=== PATIENT | male | born 1950 | race Caucasian/White ===

== ENCOUNTER 2016-05-31 06:51 | Outpatient (CLI) | payer MEDICARE, MEDICAID ==
[~2016-05-31] VITALS: Ht 177.8 cm; Wt 77.3 kg
[2016-05-31] VITALS (10 sets, daily range): BP systolic 109–171; BP diastolic 69–93; Ht 177.8 cm; Wt 77.3 kg
--- NOTE | ~2016-05-31 | HEMODYNAMI ---
PATIENT:AMRIT GABRIEL MEDICAL RECORD: [id number] : 46 LOCATION:[facility] [id number] ADMISSION DATE: 05/31/16 Generatedon:06/01/201610:23 Patient name: AMRIT GABRIEL Patient #: [id number] : 1950 Date of study: 06/01/2016 Page: Of Hemodynamic Procedure Report Patient Data Patient Demographics Procedure consent was obtained First Name: AMRIT Gender: Male Last Name: HARVEY : 1950 Middle Initial: F Age: 66 year(s) Patient #: [id number] Race: SSN: [id number] Additional ID: [id number] Contact details Address: [address] [place] [address] State: [place] City: [facility] [place] [place] Zip code: [address] Past Medical History Allergies: No known allergies Admission Admission Data Admission Date: 05/31/2016 Admission Time: 6:51 Arrival Date: 05/31/2016 Arrival Time: 9:00 Admit Source: Other Insurance Payor: Medicare Room #: D.2116 Height (in.): 70 BSA: 2.09 (m2) Height (cm.): 177.8 BMI: 28.7 (kg/m2) Weight (lbs.): 200 Weight (kg.): 90.72 Lab Results Lab Result Date: 05/31/2016 Lab Result Time: 0:00 Biochemistry Name Units Result Min Max BUN mg/dl 24 --(----)-* 7 18 Creatinine mg/dl 1.3 --(---*)-- 0.6 1.3 CBC Name Units Result Min Max Hemoglobin g/dl 14.7 --(-*--)-- 13.5 17.5 Procedure Procedure Types Cath Procedure PCI Procedure Coronary Stent Initial Miscellaneous Procedures Moderate Sedation up to 45 minutes Procedure Description Procedure Date Procedure Date: 06/01/2016 Procedure Start Time: 9:36 Procedure End Time: 10:14 Procedure Staff Name Function Merrick Mccoy MD Performing Physician Sonny Arroyo RT Scrub Danuta Kimble RN Nurse Collin Armstrong RT Ambulance Assistant Alfredito Arizmendi RT Monitor Zakiya Abraham RT Monitor Procedure Data Cath Procedure Fluoroscopy Diagnostic fluoroscopy Total fluoroscopy Time: time: 17.5 min 17.5 min Diagnostic fluoroscopy Total fluoroscopy dose: dose: 1236 mGy 1236 mGy Contrast Material Contrast Material Type Amount (ml) Isovue 300 126 Entry Location Entry Primary Successful Side Size Upsize Upsize Entry Closure Succes sful Closure Location (Fr) 1 (Fr) 2 (Fr) Remarks Device Remarks Femoral Left 7 Fr Exoseal artery Short Procedure Complications No complications Procedure Medications Medication Administration Route Dosage Oxygen NC 2 l/min Heparin Flush Bag added to field 2 bags (1000units/500ml NS) Lidocaine 2% added to field 20 Plavix P.O. 75 mg 0.9% NaCl I.V. 100 ml/hr Fentanyl I.V. 50 mcg Heparin Bolus 4000 units Fentanyl I.V. 50 mcg Heparin Bolus 3000 units Hemodynamics Rest BSA: 2.09 (m2) HGB: 14.7 (g/dl) O2 Consumption: Estimated: 244.57 (ml/min) O2 Co nsumption indexed: Estimated:117.02 (ml/min/m) Heart Rate: 72 (bpm) Snapshots Pre Cath Intra NCS Post Cath Vital Signs Time Heart Resp SPO2 NIBP (mmHg) Rhythm Pain Sedation Rate (ipm) (%) Status Level (bpm) 9:11:26 76 16 97 182/88(146) NSR 0 (11) 10(A) , No pain 9:15:57 69 15 99 173/96(143) NSR 0 (11) 10(A) , No pain 9:20:25 74 16 98 185/104(150) NSR 0 (11) 10(A) , No pain 9:24:54 75 16 98 182/100(151) NSR 0 (11) 10(A) , No pain 9:29:24 74 16 98 195/106(147) NSR 0 (11) 10(A) , No pain 9:33:52 75 16 96 186/101(159) NSR 0 (11) 10(A) , No pain 9:38:14 76 16 97 171/93(139) NSR 0 (11) 10(A) , No pain 9:42:45 73 16 95 187/92(150) NSR 0 (11) 10(A) , No pain 9:47:15 73 16 95 179/94(143) NSR 0 (11) 10(A) , No pain 9:51:39 73 16 96 171/96(143) NSR 0 (11) 10(A) , No pain 9:56:10 72 15 96 176/84(131) NSR 0 (11) 10(A) , No pain 10:00:38 71 16 95 175/90(146) NSR 0 (11) 10(A) , No pain 10:05:02 72 16 96 169/100(140) NSR 0 (11) 10(A) , No pain 10:09:27 71 16 96 177/95(144) NSR 0 (11) 10(A) , No pain 10:13:53 75 16 95 166/90(131) NSR 0 (11) 10(A) , No pain Medications Time Medication Route Dose Verified Delivered Reason Notes E ffectiveness by by 9:06:00 Plavix P.O. 75 mg Merrick Danuta for Darius Kimble RN antiplatelet therapy 9:13:21 Oxygen NC 2 Merrick Danuta Per l/min Darisu Kimble RN physician 9:13:31 Heparin Flush added 2 Merrick Merrick used for Bag to bags Darius Mccoy MD procedure (1000units/500ml field NS) 9:13:40 Lidocaine 2% added 20ml Merrickmilady Sin used for to vial Darius Mccoy MD procedure field 9:16:12 0.9% NaCl I.V. 100 Merrick Danuta Per ml/hr Darius Kimble RN physician 9:35:38 Fentanyl I.V. 50 Merrick Danuta for sedation mcg Darius Kimble RN 9:37:27 Heparin Bolus 4000 Merrick Danuta Per dose units Darius Kimble RN physician verified with dr mccoy 9:37:38 Fentanyl I.V. 50 Merrick Danuta for sedation mcg Darius Kimble RN 9:57:48 Heparin Bolus 3000 Merrick Danuta Per dose units Darius Kimble RN physician verified with dr mccoy Procedure Log Time Note 8:30:27 Collin Armstrong RT(R) sent for patient. Start room use. 8:55:51 Informed consent obtained and on chart 8:56:25 ACC Patient presents with Unstable Angina CCS Anginal Class 3--Marked limitation of physical activity, angina occurs with ordinary activity.. 8:56:33 Time tracking: Regular hours 8:56:36 Plan of Care:Hemodynamics will remain stable., Cardiac rhythm will remain stable., Comfort level will be maintained., Respiratory function will remain adequate., Patient/ family verbilizes understanding of procedure., Procedure tolerated without complication., Recovers from procedure without complications.. 9:02:42 H&P Date Dictated: 05/31/2016 Within 30 days and on chart.. 9:05:56 Patient received from Med II to CCL 2 Alert and oriented. Tansferred to table in Supine position. 9:05:57 Warm blankets applied, and sandor hugger turned on for patient comfort. 9:05:58 Correct patient and procedure confirmed by team. 9:05:59 ECG and BP/O2 sat monitors applied to patient. 9:06:00 Plavix 75 mg P.O. was given by Danuta Kimble RN; for antiplatelet therapy; 9:06:04 Pre-procedure instructions explained to patient. 9:06:05 Pre-op teaching completed and patient verbalized understanding. 9:06:07 Family in patients room. 9:06:08 Patient NPO since Midnight. 9:06:14 Patient allergic to No known allergies 9:06:17 Is the patient allergic to Iodine/contrast media? No. 9:07:46 IV Extension Set opened to sterile field. 9:10:05 Vital chart was started 9:13:21 Oxygen 2 l/min NC was given by Danuta Kimble RN; Per physician; 9:13:31 Heparin Flush Bag (1000units/500ml NS) 2 bags added to field was given by Merrick Mccoy MD; used for procedure; 9:13:34 Diagnostic Cath Status : Elective 9:13:39 Baseline sample Acquired. 9:13:40 Lidocaine 2% 20ml vial added to field was given by Merrick Mccoy MD; used for procedure; 9:13:45 Rhythm: sinus rhythm 9:13:47 Full Disclosure recording started 9:13:58 Is patient on blood thinner?Yes 9:14:01 ACC The patient was administered the following blood thiners within the last 24 hours: ACCPlavix 9:15:09 Patient diabetic? Yes. 9:15:10 If diabetic: On Metformin? Yes 9:15:14 If on Metformin: Last Dose? 05/30/2016 9:15:46 Previous problem with sedation/anesthesia? Yes DOES NOT DO WELL WITH VERSED 9:15:49 Snore? Yes 9:15:53 Sleep apnea? No 9:15:55 Deviated septum? No 9:16:06 Dentures? Yes TIGHT 9:16:12 0.9% NaCl 100 ml/hr I.V. was given by Danuta Kimble RN; Per physician; 9:16:16 PT DID NOT HAVE ANY SALINE RUNNING OR ATTACHED TO THE IV ON ARRIVAL/UNABLE TO EDIT ALFREDITO NICHOLESPENCER 9:16:16 IV patent on arrival in left forearm with 0.9% NaCl at [facility]. 9:16:28 Lab results completed and on chart. 9:16:33 Left groin area was prepped with chlora-prep and draped in sterile fashion 9:16:34 Alarms reviewed by R. N. 9:16:35 Sharps counted by scrub and verified by R.N. 9:16:36 Physician paged 9:16:42 Physician arrived 9:22:46 Use device set Femoral PCI 9:23:03 Zero performed for pressure channel P1 9:23:14 Zero performed for pressure channel P1 9:23:30 Zero performed for pressure channel P1 9:23:35 Zero performed for pressure channel P1 9:23:46 Zero performed for pressure channel P1 9:23:52 Zero performed for pressure channel P1 9:24:11 Zero performed for pressure channel P1 9:24:27 Zero performed for pressure channel P1 9:34:24 --------ALL STOP TIME OUT------ 9:34:25 Final Timeout: patient, procedure, and site verified with staff and physician. All members of the team are in agreement. 9:34:26 Left groin site verified by team. 9:34:31 Physical assessment completed. ASA score P 2 - A patient with mild systemic disease as per Merrick Mccoy MD. 9:34:37 Sedation plan: IV Moderate Sedation Fentanyl 9:35:38 Fentanyl 50 mcg I.V. was given by Danuta Kimble RN; for sedation; 9:36:20 Procedure started. 9:36:35 Local anesthetic to left femerol artery with Lidocaine 2% by Merrick Mccoy MD.INITIAL ACCESS ONLY 9:36:53 A 7 Fr Short sheath was inserted into the Left Femoral artery 9:37:20 ACC PCI Site: mRCA has 95% stenosis. 9:37:23 ACC Pre-intervention LUCINA Flow is 2. 9:37:27 Heparin Bolus 4000 units was given by Danuta Kimble RN; Per physician; dose verified with dr mccoy 9:37:32 7 Fr HS11 SH guide catheter was inserted over the wire 9:37:38 Fentanyl 50 mcg I.V. was given by Danuta Kimble RN; for sedation; 9:38:00 CPTES wire advanced. 9:40:13 Inflation number: 1 A [place] Sci [place] 3.0 X 15 balloon was prepped and advanced across the Mid RCA, then inflated to 15 KRISTA for 0:11 (min:sec). 9:40:38 Inflation number: 1 The [place] Sci [place] 3.0 X 15 balloon was reinflated across the Dist RCA, to 11 KRISTA for 0:10 (min:sec). 9:41:00 Inflation number: 2 The [place] Sci [place] 3.0 X 15 balloon was reinflated across the Mid RCA, to 11 KRISTA for 0:09 (min:sec). 9:42:56 Balloon removed over the wire. 9:44:21 The Promus Premier OTW 3.0 x 16 stent was advanced then removed because of failure to cross lesion 9:45:25 Inflation number: 3 A [place] Sci [place] 3.5 X 15 balloon was prepped and advanced across the Mid RCA, then inflated to 17 KRISTA for 0:22 (min:sec). 9:45:43 Balloon removed over the wire. 9:47:11 WHISPER wire advanced. 9:47:24 JOSEPHINE WIRE 9:48:21 Wire removed. 9:48:46 Inflation Number: 2 A Promus Premier OTW 3.0 x 16 stent was prepped and advanced across the Dist RCA. The stent was deployed at 13 KRISTA for 0:11 (min:sec). 9:49:29 Stent catheter was removed intact over wire. 9:49:35 WHISPER wire advanced. 9:49:43 JOSEPHINE WIRE 9:55:37 Wire removed. 9:55:46 CPTES wire advanced. 9:56:30 The Promus Premier OTW 3.0 x 16 stent was advanced then removed because of failure to cross lesion 9:57:48 Heparin Bolus 3000 units was given by Danuta Kimble RN; Per physician; dose verified with dr mccoy 9:58:50 Inflation number: 4 The [place] Sci [place] 3.5 X 15 balloon was reinflated across the Mid RCA, to 15 KRISTA for 0:17 (min:sec). 9:58:54 Balloon removed over the wire. 10:01:56 The Promus Premier OTW 3.0 x 16 stent was advanced then removed because of failure to cross lesion 10:04:06 Wire removed. 10:04:23 Inflation Number: 5 A [employer] Integrity 3.0 X 15 stent was prepped and advanced across the Mid RCA. The stent was deployed at 17 KRISTA for 0:14 (min:sec). 10:04:48 Stent catheter was removed intact over wire. 10:07:42 Inflation Number: 1 A Promus Premier OTW 3.0 x 16 stent was prepped and advanced across the Prox RCA. The stent was deployed at 15 KRISTA for 0:08 (min:sec). 10:07:55 Inflation number: 2 The stent balloon was then re-inflated across the Prox RCA to 21 KRISTA for 0:11 (min:sec). 10:08:20 Stent catheter was removed intact over wire. 10:09:56 Inflation number: 6 The [place] Sci [place] 3.5 X 15 balloon was reinflated across the Mid RCA, to 19 KRISTA for 0:18 (min:sec). 10:10:39 Stent catheter was removed intact over wire. 10:10:40 Wire removed. 10:10:40 Guide catheter removed. 10:11:03 Contrast amount:Isovue 300 126ml. 10:11:10 Sheath removed intact; hemostasis achieved with Exoseal to the Left Femoral artery. 10:11:12 Procedure ended.(Physican Out) 10:11:28 Fluoroscopy time 17.50 minutes. :11:33 Flurop Dose total: 1236 10::33 Fluoroscopy dose: 1236 mGy 10:11:34 Sharps counted by scrub and verified by R.N. 10:11:44 Acist Syringe opened to sterile field. 10:11:44 Acist Hand Control opened to sterile field. 10:11:45 Bag Decanter opened to sterile field. 10:11:45 Cardinal Cath Pack opened to sterile field. 10:11:50 St Yon 260cm J .035 wire opened to sterile field. 10:11:51 Merit BasixCompak Inflation Kit opened to sterile field. 10:11:51 Acist Manifold opened to sterile field. 10:11:52 Tegaderm 4 x 4 opened to sterile field. 10:11:53 Terumo 7Fr [place] Sheath opened to sterile field. 10:11:54 Tsang Whisper J 300cm 0.014 guide wire opened to sterile field. 10:11:54 Medtronic Launcher 7Fr HS II SH guide catheter opened to sterile field. 10:11:55 [place] Sci Choice PT Extra Support J 300cm .014 gu opened to sterile field. 10:11:56 [place] Sci Choice PT Extra Support J 300cm .014 gu opened to sterile field. 10:11:57 Cordis 7Fr Exoseal opened to sterile field. 10:12:49 Procedure type changed to Cath procedure, PCI procedure, Coronary Stent Initial, Miscellaneous Procedures, Moderate Sedation up to 45 minutes 10:12:53 Insertion/operative site no bleeding no hematoma. 10:12:56 Post-op/insertion site Left Femoral artery dressed using a 4 x 4 and Tegaderm. 10:12:59 Post left femerol artery:stable 10:13:01 Post Procedure Pulses reassessed and unchanged 10:13:04 Post procedure: left dorsailis pedis pulse 1+ Palpable, but thready & weak; easily obliterated. 10:13:06 Post procedure rhythm: sinus rhythm 10:13:08 Post procedure instruction explained to patient.Patient verbalizes understanding. 10:14:05 Procedure and supply charges have been captured, reviewed, submitted and are correct. 10:14:09 Procedure Complication : No complications 10:14:11 Vital chart was stopped 10:14:11 See physician's report for complete and final results. 10:14:16 Report given to PCU. 10:14:21 Patient transfered to PCU with Bed. 10:14:22 Procedure ended. 10:14:22 Full Disclosure recording stopped 10:14:30 ACC-PCI Only Patient was given prescriptions, or instructed by Merrick Mccoy MD to start/continue the following medications upon discharge: Plavix 10:14:51 End room use (Document Last) Intervention Summary Intervention Notes Time ActionType Lesion and Equipment Action# Pressure Duration Attributes Used 9:40:13 Inflate Mid RCA [place] 1 15 00:11 balloon Sci [place] 3.0 X 15 balloon 9:40:38 Reinflate Dist RCA [place] 1 11 00:10 balloon Sci [place] 3.0 X 15 balloon 9:41:00 Reinflate Mid RCA [place] 2 11 00:09 balloon Sci [place] 3.0 X 15 balloon 9:44:21 Discard Promus Stent Premier OTW 3.0 x 16 stent 9:45:25 Inflate Mid RCA [place] 3 17 00:22 balloon Sci [place] 3.5 X 15 balloon 9:48:46 Place stent Dist RCA Promus 2 13 00:11 Premier OTW 3.0 x 16 stent 9:56:30 Discard Promus Stent Premier OTW 3.0 x 16 stent 9:58:50 Reinflate Mid RCA [place] 4 15 00:17 balloon Sci [place] 3.5 X 15 balloon 10:01:56 Discard Promus Stent Premier OTW 3.0 x 16 stent 10:04:23 Place stent Mid RCA Medtronic 5 17 00:14 Integrity 3.0 X 15 stent 10:07:42 Place stent Prox RCA Promus 1 15 00:08 Premier OTW 3.0 x 16 stent 10:07:55 Reinflate Prox RCA Promus 2 21 00:11 stent Premier balloon OTW 3.0 x 16 stent 10:09:56 Reinflate Mid RCA [place] 6 19 00:18 balloon Sci [place] 3.5 X 15 balloon Device Usage Item Name Manufacture Quantity Catalog Number Hospital Part Current [facility] Lot# / Charge Number Stock Stock Serial# Code IV [place] [address] 97224-59 [id number] 10064 488674 5 Extension Set [employer] Sci [place] 1 [id number] 780995 327345 665637 1 [id number] [place] Scientific 3.0 X 15 balloon Promus [place] 2 [id number] 458458 567655 5 [id number] Premier OTW Scientific [id number] 3.0 x 16 stent [place] Sci [place] 1 [id number] 153518 647308 848037 1 [id number] Huddle 3.5 X 15 balloon Medtronic Medtronic 1 [id number] 888991 150384 283403 6 [id number] Integrity 3.0 X 15 stent Acist Acist 1 00560 539873 239787 117845 20 Syringe Medical Systems Inc Acist Hand Acist 1 03504 757769 334932 772081 5 Control Medical Systems Inc Bag Microtek 1 2002S 834246 42977 431993 5 Decanter Medical Inc. Cardinal Cardinal 1 [id number] 295224 34192 297276 5 Cath Pack [facility] St Yon St Yon 1 [id number] 096284 713192 782467 30 260cm J .035 wire Merit Merit 1 [id number] 985205 638700 483451 15 BasixCompak Medical Inflation Kit Acist Acist 1 10336 590882 318039 705231 5 StyleQ Medical Systems Inc Tegaderm 4 3M 1 1626W 239542 203238 846991 5 x 4 Terumo 7Fr Terumo 1 DSM687 613405 553611 847181 5 [place] Sheath Tsang Tsang 1 [id number] 838555 094286 930823 5 Whisper J Vascular 300cm 0.014 guide wire Medtronic Medtronic 1 [id number] 815766 422856 997328 0 Launcher 7Fr HS II SH guide catheter [employer] Sci [place] 2 [id number] 389737 241418 078641 5 [id number] Choice PT Scientific [id number] Extra Support J 300cm .014 gu Cordis 7Fr Cardinal 1 EX700 929099 196803 047648 5 [facility] Signature Audit [place] Stage Time Signature Unsigned Intra-Procedure 06/01/2016 Alfredito Arizmendi 10:23:45 AM RT(R) Signatures Monitor : Alfredito Arizmendi RT Signature : Date : Time : Monitor : Zakiya Abraham Signature : RT Date : Time : [address] [place] [address]
--- NOTE | ~2016-05-31 | HEMODYNAMI ---
PATIENT:AMRIT GABRIEL MEDICAL RECORD: [id number] : 46 LOCATION:[facility] ADMISSION DATE: 05/31/16 Generatedon:05/31/201610:12 Patient name: AMRIT GABRIEL Patient #: [id number] : 1950 Date of study: 05/31/2016 Page: Of Hemodynamic Procedure Report Patient Data Patient Demographics Procedure consent was obtained First Name: AMRIT Gender: Male Last Name: HARVEY : 1950 Middle Initial: F Age: 66 year(s) Patient #: [id number] Race: SSN: [id number] Additional ID: [id number] Contact details Address: [address] [place] [address] State: [place]: [facility] [place] Zip code: [address] Past Medical History Allergies: No known allergies Admission Admission Data Admission Date: 05/31/2016 Admission Time: 6:51 Arrival Date: 05/31/2016 Arrival Time: 9:00 Admit Source: Other Insurance Payor: Medicare Height (in.): 70 BSA: 2.09 (m2) Height (cm.): 177.8 BMI: 28.7 (kg/m2) Weight (lbs.): 200 Weight (kg.): 90.72 Lab Results Lab Result Date: 05/31/2016 Lab Result Time: 0:00 Biochemistry Name Units Result Min Max BUN mg/dl 24 --(----)-* 7 18 Creatinine mg/dl 1.3 --(---*)-- 0.6 1.3 CBC Name Units Result Min Max Hemoglobin g/dl 14.7 --(-*--)-- 13.5 17.5 Procedure Procedure Types Cath Procedure Diagnostic Procedure [facility] w/Coronaries PCI Procedure Coronary Stent Initial Procedure Description Procedure Date Procedure Date: 05/31/2016 Procedure Start Time: 9:45 Procedure End Time: 10:07 Procedure Staff Name Function Merrick Mccoy MD Performing Physician Zakiya Abraham RT Scrub Danuta Kimble RN Nurse Jessica White RT Monitor Collin Armstrong RT Fpga Engineer Procedure Data Cath Procedure Fluoroscopy Diagnostic fluoroscopy Total fluoroscopy Time: 5.5 time: 5.5 min min Diagnostic fluoroscopy Total fluoroscopy dose: dose: 386.56 mGy 386.56 mGy Contrast Material Contrast Material Type Amount (ml) Isovue 370 84 Entry Location Entry Primary Successful Side Size Upsize Upsize Entry Closure Succes sful Closure Location (Fr) 1 (Fr) 2 (Fr) Remarks Device Remarks Femoral Right 5 Fr 6 Fr Vascade artery Short Closure System Estimated blood loss: 5 ml Diagnostic catheters Device Type Used For End Catheter Placement Cordis 5Fr Pigtail LV Angiography Catheter (MP) Cordis 5Fr JL 4.0 Left Coronary Catheter (MP) Angiography Cordis 5Fr 3DRC Catheter Right Coronary (MP) Angiography Procedure Complications No complications Procedure Medications Medication Administration Route Dosage Oxygen NC 2 l/min Heparin Flush Bag added to field 2 bags (1000units/500ml NS) Lidocaine 2% added to field 20 Versed I.V. 1 mg Fentanyl I.V. 50 mcg Versed I.V. 1 mg Fentanyl I.V. 50 mcg Versed I.V. 1 mg Fentanyl I.V. 50 mcg Versed I.V. 1 mg Fentanyl I.V. 50 mcg Versed I.V. 1 mg Fentanyl I.V. 50 mcg Heparin Bolus I.V. 4000 units Hemodynamics Rest BSA: 2.09 (m2) HGB: 14.7 (g/dl) O2 Consumption: Estimated: 247.7 (ml/min) O2 Con sumption indexed: Estimated:118.52 (ml/min/m) Heart Rate: 76 (bpm) Pressure Samples Time Site Value (mmHg) Purpose Heart Use Rate(bpm) 9:47 LV 82/39,48 Snapshot 78 Snapshots Pre Cath Intra NCS Post Cath Vital Signs Time Heart Resp SPO2 NIBP (mmHg) Rhythm Pain Sedation Rate (ipm) (%) Status Level (bpm) 9:21:21 71 17 97 168/102(150) NSR 0 (11) 10(A) , No pain 9:25:39 76 15 98 148/96(123) NSR 0 (11) 10(A) , No pain 9:29:51 74 16 98 145/90(128) NSR 0 (11) 10(A) , No pain 9:34:09 73 16 95 144/89(121) NSR 0 (11) 10(A) , No pain 9:38:23 76 16 95 119/81(106) NSR 0 (11) 10(A) , No pain 9:42:37 67 16 96 127/79(98) NSR 0 (11) 10(A) , No pain 9:46:43 75 16 96 115/81(93) NSR 0 (11) 10(A) , No pain 9:50:59 75 19 96 110/59(78) NSR 0 (11) 10(A) , No pain 9:55:09 75 16 96 124/78(100) NSR 0 (11) 10(A) , No pain 9:59:25 80 16 97 107/78(96) NSR 0 (11) 10(A) , No pain 10:03:32 85 18 94 112/78(100) NSR 0 (11) 10(A) , No pain 10:07:42 81 16 96 120/79(96) NSR 0 (11) 10(A) , No pain Medications Time Medication Route Dose Verified Delivered Reason Notes Effectiveness by by 9:20:28 Oxygen NC 2 Merrick Danuta Per physician l/min Darius Kimble RN 9:20:36 Heparin Flush added 2 Merrick Merrick used for Bag to bags Darius Mccoy MD procedure (1000units/500ml field NS) 9:20:44 Lidocaine 2% added 20ml Merrickmilady Franklinrey used for to vial Darius Mccoy MD procedure field 9:31:00 Versed I.V. 1 mg Merrick Danuta for sedation Darius Kimble RN 9:31:07 Fentanyl I.V. 50 Merrick Danuta for sedation mcg Darius Kimble RN 9:33:17 Versed I.V. 1 mg Merrick Danuta for sedation Darius Kimble RN 9:33:20 Fentanyl I.V. 50 Merrick Danuta for sedation mcg Darius Kimble RN 9:39:35 Versed I.V. 1 mg Merrick Danuta for sedation Darius Kimble RN 9:39:37 Fentanyl I.V. 50 Merrick Danuta for sedation mcg Darius Kimble RN 9:43:59 Versed I.V. 1 mg Merrick Danuta for sedation Darius Kimble RN 9:44:02 Fentanyl I.V. 50 Merrick Danuta for sedation mcg Darius Kimble RN 9:46:34 Versed I.V. 1 mg Merrick Danuta for sedation Darius Kimble RN 9:46:37 Fentanyl I.V. 50 Merrick Danuta for sedation mcg Darius Kimble RN 9:56:00 Heparin Bolus I.V. 4000 Merrick Danuta for units Darius Kimble RN anticoagulation Procedure Log Time Note 9:00:32 Clolin Armstrong RT(R) sent for patient. Start room use. 9:07:11 Informed consent obtained and on chart 9:08:23 Admit Source: Other 9:08:28 Patient Height : 177.8 inches 9:08:35 Patient Weight : 90.72 lbs 9:08:57 Arrival Date: 05/31/2016 9:00:00 AM 9:09:13 Insurance Payor : Medicare 9:11:48 Lab Result : Hemoglobin 14.7 g/dl 9:11:48 Lab Result : BUN 24 mg/dl 9:11:48 Lab Result : Creatinine 1.3 mg/dl 9:12:13 Diagnostic Cath Status : Elective 9:12:38 Time tracking: Regular hours 9:12:43 Plan of Care:Hemodynamics will remain stable., Cardiac rhythm will remain stable., Comfort level will be maintained., Respiratory function will remain adequate., Patient/ family verbilizes understanding of procedure., Procedure tolerated without complication., Recovers from procedure without complications.. 9:12:59 Patient received from Outpatients to [facility] 3 Alert and oriented. Tansferred to table in Supine position. 9:13:00 Warm blankets applied, and sandor hugger turned on for patient comfort. 9:13:01 Correct patient and procedure confirmed by team. 9:13:01 ECG and BP/O2 sat monitors applied to patient. 9:17:00 Vital chart was started 9:17:03 Full Disclosure recording started 9:17:09 Rhythm: sinus rhythm 9:17:31 H&P Date Dictated: 05/05/2016 Within 30 days and on chart., H&P Addendum completed by physician on day of procedure. (MUST COMPLETE FOR ALL OUTPATIENTS). 9:17:33 Pre-procedure instructions explained to patient. 9:17:33 Pre-op teaching completed and patient verbalized understanding. 9:17:35 Family in waiting room. 9:17:37 Patient NPO since Midnight. 9:17:43 Patient allergic to No known allergies 9:17:45 Is the patient allergic to Iodine/contrast media? No. 9:18:33 Is patient on blood thinner?Yes 9:18:36 ACC The patient was administered the following blood thiners within the last 24 hours: ACCPlavix 9:18:38 Patient diabetic? Yes. 9:18:39 If diabetic: On Metformin? Yes 9:18:42 If on Metformin: Last Dose? 05/26/2016 9:18:48 Previous problem with sedation/anesthesia? Yes ? 9:19:04 Baseline sample Acquired. 9:20:28 Oxygen 2 l/min NC was given by Danuta Kimble RN; Per physician; 9:20:36 Heparin Flush Bag (1000units/500ml NS) 2 bags added to field was given by Merrick Mccoy MD; used for procedure; 9:20:44 Lidocaine 2% 20ml vial added to field was given by Merrick Mccoy MD; used for procedure; 9:29:42 Snore? Yes 9:29:43 Sleep apnea? No 9:29:44 Deviated septum? No 9:29:45 Opens mouth fully? Yes 9:29:46 Sticks out tongue? Yes 9:29:49 Airway obstruction? No ? 9:29:58 Dentures? Yes Partials in tight 9:30:02 Pre procedure: right dorsailis pedis pulse 1+ Palpable, but thready & weak; easily obliterated 9:30:17 Patient pain scale 0/10 ?. 9:30:40 IV patent on arrival in left forearm with 0.9% NaCl at [facility]. 9:30:44 Lab results completed and on chart. 9:30:48 Right groin area was prepped with chlora-prep and draped in sterile fashion 9:30:49 Alarms reviewed by R. N. 9:30:50 Sharps counted by scrub and verified by R.N. 9:30:51 Physician arrived 9:30:52 --------ALL STOP TIME OUT------ 9:30:52 Final Timeout: patient, procedure, and site verified with staff and physician. All members of the team are in agreement. 9:30:54 Right groin site verified by team. 9:30:57 Physical assessment completed. ASA score P 2 - A patient with mild systemic disease as per Merrick Mccoy MD. 9:31:00 Versed 1 mg I.V. was given by Danuta Kimble RN; for sedation; 9:31:01 Sedation plan: IV Moderate Sedation Versed, Fentanyl 9:31:04 Use device set Femoral Dx 9:31:05 Acist Syringe opened to sterile field. 9:31:05 Bag Decanter opened to sterile field. 9:31:06 Cardinal Cath Pack opened to sterile field. 9:31:06 Terumo 5Fr Union Star Sheath opened to sterile field. 9:31:07 Fentanyl 50 mcg I.V. was given by Danuta Kimble RN; for sedation; 9:31:07 St Yon 260cm J .035 wire opened to sterile field. 9:31:08 Acist Hand Control opened to sterile field. 9:31:08 Acist Manifold opened to sterile field. 9:31:08 Cordis Infinity 5Fr Multipack catheter opened to sterile field. 9:31:10 Tegaderm 4 x 4 opened to sterile field. 9:31:45 Zero performed for pressure channel P1 9:33:17 Versed 1 mg I.V. was given by Danuta Kimble RN; for sedation; 9:33:20 Fentanyl 50 mcg I.V. was given by Danuta Kimble RN; for sedation; 9:39:35 Versed 1 mg I.V. was given by Danuta Kimble RN; for sedation; 9:39:37 Fentanyl 50 mcg I.V. was given by Danuta Kimble RN; for sedation; 9:43:32 Procedure started. 9:43:59 Versed 1 mg I.V. was given by Danuta Kimble RN; for sedation; 9:44:02 Fentanyl 50 mcg I.V. was given by Danuta Kimble RN; for sedation; 9:45:28 Local anesthetic to right femoral artery with Lidocaine 2% by Merrick Mccoy MD.INITIAL ACCESS ONLY 9:46:34 Versed 1 mg I.V. was given by Danuta Kimble RN; for sedation; 9:46:37 Fentanyl 50 mcg I.V. was given by Danuta Kimble RN; for sedation; 9:46:50 A 5 Fr sheath was inserted into the Right Femoral artery 9:46:58 A Cordis 5Fr Pigtail Catheter (MP) was advanced over the wire and used for LV Angiography. 9:47:49 LV hemodynamics recorded. 9:47:50 LV gram done using BULL 9:47:53 Injector settings: Ml/sec: 5, Volume: 15, 9:48:01 EF : 50 % 9:48:04 Catheter removed. 9:48:09 A Cordis 5Fr JL 4.0 Catheter (MP) was advanced over the wire and used for Left Coronary Angiography. 9:49:03 LCA angiography performed. 9:50:05 Injector settings: Ml/sec: 3, Volume: 6, 9:50:08 Catheter removed. 9:50:13 A Cordis 5Fr 3DRC Catheter (MP) was advanced over the wire and used for Right Coronary Angiography. 9:54:23 RCA angiography performed. 9:54:26 Injector settings: Ml/sec: 3, Volume: 6, 9:54:28 Catheter removed. 9:54:32 Proceeding to intervention. 9:55:04 Cordis 6FR XBLAD 4.0 guide catheter opened to sterile field. 9:55:04 Tsang Whisper J 300cm 0.014 guide wire opened to sterile field. 9:55:05 Merit BasixCompak Inflation Kit opened to sterile field. 9:55:06 Terumo 6Fr Union Star Sheath opened to sterile field. 9:55:43 Sheath upsized to a 6 Fr Short. 9:55:54 6 Fr xblad 4 guide catheter was inserted over the wire 9:56:00 Heparin Bolus 4000 units I.V. was given by Danuta Kimble RN; for anticoagulation; 9:58:06 whisper wire advanced. 9:58:48 whisper wire removed 9:58:55 [place] Sci Choice PT Extra Support J 300cm .014 gu opened to sterile field. 9:59:42 choice pt wire advanced. 9:59:44 Wire advanced across lesion. 9:59:56 Inflation number: 1 A [place] Sci Jackson 2.5 X 20 balloon was prepped and advanced across the Mid CX, then inflated to 13 KRISTA for 0:10 (min:sec). 10:00:19 Inflation number: 2 The Tigermed Jackson 2.5 X 20 balloon was reinflated across the Mid CX, to 13 KRISTA for 0:10 (min:sec). 10:00:33 Balloon removed over the wire. 10:02:36 Inflation Number: 3 A haystaggtronic Resolute 2.5 X 26 stent was prepped and advanced across the Mid CX. The stent was deployed at 13 KRISTA for 0:10 (min:sec). 10:03:14 Stent catheter was removed intact over wire. 10:03:14 Wire removed. 10:03:15 Guide catheter removed. 10:03:41 Vascade 6/7 Fr Closure Device opened to sterile field. 10:03:53 Sheath removed intact; hemostasis achieved with Vascade Closure System to the Right Femoral artery. 10:03:55 Procedure ended.(Physican Out) 10:04:11 Fluoroscopy time 05.50 minutes. 10:04:23 Fluoroscopy dose: 386.56 mGy 10:04:23 Flurop Dose total: 386.56 10:07:07 Contrast amount:Isovue 370 84ml. 10:07:09 Sharps counted by scrub and verified by R.N. 10:07:10 Insertion/operative site no bleeding no hematoma. 10:07:13 Post-op/insertion site Right Femoral artery dressed using a 4 x 4 and Tegaderm. 10:07:16 Post right femoral artery:stable 10:07:17 Post Procedure Pulses reassessed and unchanged 10:07:20 Post procedure rhythm: unchanged. 10:07:22 Estimated blood loss: 5 ml 10:07:23 Post procedure instruction explained to patient.Patient verbalizes understanding. 10:07:23 Patient needs reinforcement of post procedure teaching. 10:07:31 Procedure type changed to Cath procedure, Diagnostic procedure, LHC, LHC w/Coronaries, PCI procedure, Coronary Stent Initial 10:07:32 Procedure and supply charges have been captured, reviewed, submitted and are correct. 10:07:36 Procedure Complication : No complications 10:07:38 Vital chart was stopped 10:07:39 See physician's report for complete and final results. 10:07:42 Report given to Post Procedure Room. 10:07:45 Patient transfered to Post Procedure Room with Stretcher. 10:07:46 Procedure ended. 10:07:46 Full Disclosure recording stopped 10:08:01 ACC-PCI Only Patient was given prescriptions, or instructed by Merrick Mccoy MD to start/continue the following medications upon discharge: Plavix 10:08:02 End room use (Document Last) Intervention Summary Intervention Notes Time ActionType Lesion and Equipment Action# Pressure Duration Attributes Used 9:59:56 Inflate Mid CX [place] 1 13 00:10 balloon Sci Jackson 2.5 X 20 balloon 10:00:19 Reinflate Mid CX [place] 2 13 00:10 balloon Sci Jackson 2.5 X 20 balloon 10:02:36 Place stent Mid CX Medtronic 3 13 00:10 Resolute 2.5 X 26 stent Device Usage Item Name Manufacture Quantity Catalog Number Hospital Part Current Mini mal Lot# / Charge Number Stock Stock Serial# Code Acist Acist 1 42454 [id number] 615648 769331 20 Syringe Medical Systems Inc Bag Microtek 1 2002S 098144 42066 719707 5 Decanter Medical Inc. Cardinal Cardinal 1 [id number] 499148 93933 035590 5 Cath Pack Health Terumo 5Fr Terumo 1 [id number] 768670 741976 493826 [address] Yon St Yon 1 321679 902643 330014 918374 30 260cm J .035 wire Acist Hand Acist 1 21096 550094 283955 975408 5 Control Medical Systems Inc Acist Acist 1 39459 699154 376691 897202 5 Chronicle Solutions Medical Systems Inc Cordis Cardinal 1 IR9382 598909 11797 844854 30 Infinity Health 5Fr Multipack catheter Tegaderm 4 3M 1 1626W 082491 821469 441522 5 x 4 Cordis 5Fr Cardinal 1 503196 5 Pigtail Health Catheter (MP) Cordis 5Fr Cardinal 1 482206 5 JL 4.0 Health Catheter (MP) Cordis 5Fr Cardinal 1 973185 5 3DRC Health Catheter (MP) Cordis 6FR Cardinal 1 [id number] 553146 374784 037509 3 XBLAD 4.0 Health guide catheter Tsang Tsang 1 [id number] 453860 876838 744993 5 Whisper J Vascular 300cm 0.014 guide wire Merit Merit 1 LW3975 598070 605787 354919 15 BasixCompak Medical Inflation Kit Terumo 6Fr Terumo 1 HRD919 463190 738334 625909 40 Union Star Sheath [place] Sci [place] 1 [id number] 144530201872 071542 5 Choice PT Scientific Extra Support J 300cm .014 gu [place] Sci [place] 1 [id number] 613324 116196 251698 1 [id number] Jackson Scientific 2.5 X 20 balloon Medtronic Medtronic 1 [id number] 835292 525508 9 [id number] Resolute 2.5 X 26 stent Vascade 09/29 Cardiva 1 [id number] 036200 164287 639622 5 Fr Closure Medical, Device Inc. Signature Audit [place] Stage Time Signature Unsigned Intra-Procedure 05/31/2016 Jessica White 10:11:55 AM RT(R) Signatures Monitor : Jessica White RT Signature : Date : Time : [place] [address] [place] [address]
[~2016-05-31 06:51] MED LIST: AMBIEN5 MG PO; ASPIRIN EC81 MG PO; ASPIRIN325 MG PO; COUMADIN7.5 MG PO; GLUCOPHAGE850 MG PO; HYTRIN1 MG PO; JANUVIA100 MG PO; MOTRIN800 MG PO; NITROSTAT0.4 MG SL; PLAVIX75 MG PO
[2016-05-31] MEDS ORDERED: ASPIRIN325 MG (07:23)
[2016-05-31] MEDS ORDERED: COUMADIN5 MG PO (07:26)
[2016-05-31] MEDS ORDERED: PROZAC20 MG PO (07:28)
[2016-05-31 07:37] LABS: BASOPHILS 0.7 % (0.0-2.0); EOSINOPHILS 4.3 % (0-7); HEMATOCRIT 42.7 % (42.0-54.0); HEMOGLOBIN 14.7 g/dL (13.5-17.5); IMMATURE GRANULOCYTES 0.1 % (0-5); LYMPHOCYTES 21.7 % (15-50); MCH 30.6 pg (26.0-34.0); MCHC 34.4 g/dL (31.0-37.0); MEAN PLATELET VOLUME 9.6 fL (7.4-10.4); MONOCYTES 11.5 % (2-11); NEUTROPHILS 61.7 % (40-80); PLATELET COUNT 209 10x3/uL (130-400); RDW 13.6 % (11.5-14.5); WBC 7.7 10x3/uL (4.8-10.8)
[2016-05-31 07:47] LABS: ANION GAP 13.4 mmol/L (8-16); CALCIUM 9.5 mg/dL (8.5-10.1); CARBON DIOXIDE 25.5 mmol/L (21.0-32.0); CREATININE - SERUM 1.3 mg/dL (0.6-1.3); POTASSIUM - SERUM 3.9 mmol/L (3.5-5.1)
[2016-05-31 08:43] LABS: INR 1.05 (0.85-1.17); PROTIME 13.6 SECONDS (11.6-15.0)
--- NOTE | 2016-05-31 23:05 | NUR ---
REPORT RECIEVED, INITIAL ASSESSMENT COMPLETE, PT WAS UP TO RESTROOM, GAIT STEADY. DENIES PAIN ATT. ASKED FOR AN EXTRA BLANKET, THIS WAS PROVIDED. NO S&S OF ACUTE DISTRESS NOTED. WILL CONTINUE TO MONITOR.
--- NOTE | 2016-05-31 23:58 | NUR ---
PERIPHERAL PULSES CHECKED AND PALPABLE, WILL CONTINUE TO MONITOR.
--- NOTE | 2016-06-01 01:00 | NUR ---
PT SLEEPING, IV COMPLETED INFUSION, INFUSION WAS DC'D AND IV SALINE LOCKED. PT DENIES PAIN/NEEDS ATT. NO S&S OF ACUTE DISTRESS NOTED, RR EVEN AND UNLABORED. WILL CONTINUE TO MONITOR.
[2016-06-01 01:42] VITALS: BP 140/88
--- NOTE | 2016-06-01 04:00 | NUR ---
PERIPHERAL PULSES CHECKED, PALPABLE. NO S&S OF ACUTE DISTRESS, WILL CONTINUE TO MONITOR.
[2016-06-01 05:48] VITALS: BP 138/78
--- NOTE | 2016-06-01 07:19 | NUR ---
RECEIVED REPORT FROM SHEAR SETTER. ENVIRONMENTAL RESEARCH PROJECT MANAGER CALLED TO PREOP. PT UP TO BR. PREOP MEDS GIVEN
[2016-06-01 07:45] VITALS: BP 184/98
[2016-06-01] MEDS ORDERED: ASPIRIN325 MG PO (10:22)
--- NOTE | 2016-06-01 10:44 | NUR ---
BACK FROM TITLE CURATOR FEMSTOP ON SITE CLEAN, DRY NO EDEMA OR BLEEDING. TRIED TO VOID IN URINAL BUT MISSED IT AND INCONT ON BED. LINENS CHANGED. MONITOR SHOWS SR WITH BBB @ 70.
[2016-06-01 12:20] VITALS: BP 120/90
[2016-06-01 15:43] VITALS: BP 148/81
--- NOTE | 2016-06-01 17:30 | NUR ---
REVIEWED DISCHARGE INSTRUCTIONS PT AND STATE UNDERSTANDING COPY GIVEN TO PT SALINE LOCK DCD TO LT HAND WITH IV CATH INTACT NO REDNESS OR EDEMA NOTED TO SITE PT DISCHARGED HOME IN STABLE CONDITION WITH ALL PERSONAL BELONGINGS LEFT UNIT VIA W/C
--- NOTE | 2016-06-03 13:59 | OP ---
PATIENT NAME: AMRIT GABRIEL MEDICAL RECORD: [id number] :46 LOCATION:D.CAT ADMISSION DATE: SURGEON: RENZO JOHNSTON MD DATE OF OPERATION: 06/01/2016 PROCEDURES: 1. PTCA stent, RCA. 2. Selective coronary angiography. INDICATIONS: Angina and coronary artery disease. PROCEDURE IN DETAIL: After informed consent was obtained and after detailed explanation of risks, benefits as well as alternative therapies, the patient elected to proceed with angiogram and angioplasty. The left femoral area was prepped and draped in normal sterile fashion. Left femoral artery was cannulated via modified Seldinger technique with placement of 6-Telugu sheath. All catheters exchanged through this sheath. FINDINGS: The right coronary has 3 areas of 90% and 95% stenosis. These were addressed with a 3.0 x 16 mm Promus times 2 and 3.0 x 15 mm Integrity times 1. Result was 0% residual stenosis. OVERALL IMPRESSION: Successful percutaneous transluminal coronary angioplasty stent of the right coronary artery going from multiple areas of 90% and 95% initial stenosis to 0% residual stenosis. TRANSINT:[id number] Voice Confirmation ID: [id number] DOCUMENT ID: [id number] RENZO JOHNSTON MD at 1359 CC: [id number] DICTATION DATE: 06/01/16 1016 COMMERCIAL REVIEW APPRAISER: 06/01/16 1026 [facility] CLI 06/01/16 [place] [id number] [place] [address]
--- NOTE | 2016-06-03 13:59 | OP ---
PATIENT NAME: AMRIT GABRIEL MEDICAL RECORD: [id number] :46 LOCATION:D.CAT ADMISSION DATE: SURGEON: RENZO JOHNSTON MD DATE OF OPERATION: 05/31/2016 PROCEDURES: 1. PTCA stent, left circumflex. 2. Left heart catheterization. 3. Selective coronary angiography. 4. Left ventriculogram. INDICATION: Coronary artery disease. PROCEDURE IN DETAIL: After informed consent was obtained and after detailed explanation of risks, benefits as well as alternative therapies, the patient elected to proceed with angiogram and angioplasty. The right femoral area was prepped and draped in normal sterile fashion. The right femoral artery was cannulated via modified Seldinger technique with placement of 6-Chinese sheath. All catheters exchanged through this sheath. FINDINGS: The left ventriculogram was performed in standard 30-degree BULL view, reveals good cardiac wall motion, ejection fraction 50%. SELECTIVE CORONARY ANGIOGRAPHY: 1. Left main is with no significant angiographic disease. 2. Left circumflex has 95% stenosis in the mid vessel. 3. Left anterior descending has a 90% stenosis in the mid vessel and diffuse disease thereafter. 4. The right coronary has multiple areas of 80%-90% stenosis. PTCA STENT OF THE LEFT CIRCUMFLEX: The stent used is a 2.5 x 26 mm Resolute. Result was 0% residual stenosis. OVERALL IMPRESSION: Successful percutaneous transluminal coronary angioplasty stent of the left circumflex going from 95% initial stenosis to 0% residual. PLAN: PTCA stent of the LAD and RCA in the near future in a staged fashion. TRANSINT:[id number] Voice Confirmation ID: [id number] DOCUMENT ID: [id number] RENZO JOHNSTON MD at 1359 CC: [id number] DICTATION DATE: 05/31/16 1010 RED CROSS WORKER: 05/31/16 1109 [facility] CLI 06/01/16 [place] [id number]
--- NOTE | 2016-06-03 13:59 | DS ---
PATIENT:AMRIT MEJIA :46 MEDICAL RECORD: [id number] DISCHARGE SUMMARY ADMISSION DATE: 05/31/16 DISCHARGE DATE: 06/01/16 DISCHARGE DIAGNOSES: 1. Angina. 2. Coronary artery disease. 3. Hypertension. 4. Hyperlipidemia. HOSPITAL COURSE: Mr. Mejia presents with anginal symptomatology, found to have 3-vessel coronary artery disease, underwent successful PTCA stent of the RCA and left circumflex. He was discharged home with the addition of aspirin and Plavix to his medical regimen. He will follow up in 1 week for PTCA stent of the LAD. TRANSINT:[id number] Voice Confirmation ID: [id number] DOCUMENT ID: [id number] RENZO JOHNSTON MD at 1359 CC: [id number] DICTATION DATE: 06/01/16 1015 INSURANCE MARKETING SPECIALIST: 06/01/16 1030 [facility] CLI 06/01/16 [place] [id number] [place] [address]
== END 2016-06-01 19:47 | disposition home or self-care (01) ==
LOC: D.M2 06:51 → D.CATH 06:51 → D.M2 10:21 → D.CATH 06-01 19:47
PROVIDERS: Internal Medicine Interventional Cardiology
DX: I25.119 Atherosclerotic heart disease of native coronary artery with unspecified angina pectoris (principal); I10 Essential (primary) hypertension; E78.5 Hyperlipidemia, unspecified
CPT/HCPCS: 93458; C9600 ×2

== ENCOUNTER 2016-06-08 07:33 | Outpatient (CLI) | payer MEDICARE, MEDICAID ==
[~2016-06-08] VITALS: Ht 177.8 cm; Wt 87.7 kg
--- NOTE | ~2016-06-08 | HEMODYNAMI ---
PATIENT:AMRIT GABRILE MEDICAL RECORD: [id number] : 46 LOCATION:D[facility]nolCAT ADMISSION DATE: 06/08/16 Generatedon:06/08/20169:32 Patient name: AMRIT GABRIEL Patient #: [id number] : 1950 Date of study: 06/08/2016 Page: Of Hemodynamic Procedure Report Patient Data Patient Demographics Procedure consent was obtained First Name: AMRIT Gender: Male Last Name: HARVEY : 1950 Middle Initial: F Age: 66 year(s) Patient #: [id number] Race: SSN: [id number] Additional ID: [id number] Contact details Address: [address] [place] [address] State: [place] City: [facility] Zip code: [address] Past Medical History Allergies: No known allergies Admission Admission Data Admission Date: 06/08/2016 Admission Time: 7:33 Admit Source: Other Insurance Payor: Medicare, Medicaid Height (in.): 70 BSA: 2.09 (m2) Height (cm.): 177.8 BMI: 28.7 (kg/m2) Weight (lbs.): 200 Weight (kg.): 90.72 Medications upon Admission Medications Dosage Times Administered Last Remarks per Delivery Day Date and Time Clopidogrel Yes 06/08/2016 0:00 Lab Results Lab Result Date: 06/08/2016 Lab Result Time: 8:10 Biochemistry Name Units Result Min Max BUN mg/dl 23 --(----)-* 7 18 Creatinine mg/dl 1.4 --(----)*- 0.6 1.3 CBC Name Units Result Min Max Hematocrit % 42.6 --(*---)-- 42 54 Hemoglobin g/dl 14.5 --(*---)-- 13.5 17.5 Procedure Procedure Types Cath Procedure PCI Procedure Coronary Stent Initial Miscellaneous Procedures Moderate Sedation up to 15 minutes Procedure Description Procedure Date Procedure Date: 06/08/2016 Procedure Start Time: 9:16 Procedure End Time: 9:29 Procedure Staff Name Function Merrick Mccoy MD Performing Physician Zakiya Abraham RT Scrub Danuta Kimble RN Nurse Sonny Arroyo RT Monitor Collin Armstrong RT Monitor Procedure Data Cath Procedure Fluoroscopy Diagnostic fluoroscopy Total fluoroscopy Time: 3.4 time: 3.4 min min Diagnostic fluoroscopy Total fluoroscopy dose: dose: 260.45 mGy 260.45 mGy Contrast Material Contrast Material Type Amount (ml) Isovue 300 43 Entry Location Entry Primary Successful Side Size Upsize Upsize Entry Closure Succes sful Closure Location (Fr) 1 (Fr) 2 (Fr) Remarks Device Remarks Femoral Right 6 Fr Exoseal artery Short Estimated blood loss: 10 ml Procedure Complications No complications Procedure Medications Medication Administration Route Dosage Oxygen NC 2 l/min Heparin Flush Bag added to field 2 bags (1000units/500ml NS) Lidocaine 2% added to field 20 Fentanyl I.V. 50 mcg Fentanyl I.V. 50 mcg Fentanyl I.V. 50 mcg Heparin Bolus I.V. 4000 units Fentanyl I.V. 50 mcg Hemodynamics Rest BSA: 2.09 (m2) HGB: 14.5 (g/dl) O2 Consumption: Estimated: 249.84 (ml/min) O2 Co nsumption indexed: Estimated:119.54 (ml/min/m) Heart Rate: 79 (bpm) Snapshots Pre Cath Intra NCS Post Cath Vital Signs Time Heart Resp SPO2 NIBP (mmHg) Rhythm Pain Sedation Rate (ipm) (%) Status Level (bpm) 8:57:08 72 16 99 159/96(142) NSR 0 (11) 10(A) , No pain 9:02:31 72 16 98 188/101(158) NSR 0 (11) 10(A) , No pain 9:06:54 75 16 99 170/107(151) NSR 0 (11) 10(A) , No pain 9:11:18 80 16 99 176/101(143) NSR 0 (11) 10(A) , No pain 9:16:50 86 16 98 175/98(140) NSR 0 (11) 10(A) , No pain 9:21:10 78 16 96 166/97(134) NSR 0 (11) 10(A) , No pain 9:25:34 78 16 98 170/88(138) NSR 0 (11) 10(A) , No pain 9:29:24 79 16 97 156/91(127) NSR 0 (11) 10(A) , No pain Medications Time Medication Route Dose Verified Delivered Reason Notes Effectiveness by by 8:51:08 Oxygen NC 2 Merrick Danuta Per physician l/min Darius Kimble RN 8:51:16 Heparin Flush added 2 Merrickmilady Sin used for Bag to bags Darius Mccoy MD procedure (1000units/500ml field NS) 8:51:25 Lidocaine 2% added 20ml Merrick Merrick used for to vial Darius Mccoy MD procedure field 9:11:07 Fentanyl I.V. 50 Merrick Danuta for sedation mcg Darius Kimble RN 9:13:34 Fentanyl I.V. 50 Merrick Danuta for sedation mcg Darius Kimble RN 9:15:52 Fentanyl I.V. 50 Merrick Danuta for sedation mcg Darius Kimble RN 9:18:54 Fentanyl I.V. 50 Merrick Danuta for sedation mcg Darius Kimble RN 9:19:12 Heparin Bolus I.V. 4000 Merrick Danuta for dose units Darius Kimble RN anticoagulation verified wt dr mccoy Procedure Log Time Note 8:15:38 Collin Armstrong RT(R) sent for patient. Start room use. 8:37:07 PCI Cath Status : Elective 8:37:24 Admit Source: Other 8:37:29 Informed consent obtained and on chart 8:37:35 ACC Patient presents with Stable Angina CCS Anginal Class 2--Slight limitation of ordinary activity. 8:37:48 Time tracking: Regular hours 8:37:51 Plan of Care:Hemodynamics will remain stable., Cardiac rhythm will remain stable., Comfort level will be maintained., Respiratory function will remain adequate., Patient/ family verbilizes understanding of procedure., Procedure tolerated without complication., Recovers from procedure without complications.. 8:39:38 Patient Height : 177.8 inches 8:39:40 Patient Weight : 90.72 lbs 8:39:52 H&P Date Dictated: 06/08/2016 Within 30 days and on chart., H&P Addendum completed by physician on day of procedure. (MUST COMPLETE FOR ALL OUTPATIENTS). 8:39:59 Patient allergic to No known allergies 8:44:22 Lab Result : BUN 23 mg/dl 8:44:22 Lab Result : Creatinine 1.4 mg/dl 8:44:22 Lab Result : Hemoglobin 14.5 g/dl 8:44:22 Lab Result : Hematocrit 42.6 % 8:44:24 Lab results completed and on chart. 8:44:44 Insurance Payor : Medicare, Medicaid 8:50:57 Patient received from Pre/Post Procedure Room to CCL 2 Alert and oriented. Tansferred to table in Supine position. 8:50:59 Warm blankets applied, and sandor hugger turned on for patient comfort. 8:50:59 Correct patient and procedure confirmed by team. 8:51:00 ECG and BP/O2 sat monitors applied to patient. 8:51:02 Pre-procedure instructions explained to patient. 8:51:02 Pre-op teaching completed and patient verbalized understanding. 8:51:04 Family in waiting room. 8:51:05 Patient NPO since Midnight. 8:51:06 Is the patient allergic to Iodine/contrast media? No. 8:51:08 Oxygen 2 l/min NC was given by Danuta Kimble RN; Per physician; 8:51:08 Is patient on blood thinner?Yes 8:51:10 ACC The patient was administered the following blood thiners within the last 24 hours: ACCPlavix 8:51:12 Patient diabetic? Yes. 8:51:14 If diabetic: On Metformin? Yes 8:51:16 Heparin Flush Bag (1000units/500ml NS) 2 bags added to field was given by Merrick Mccoy MD; used for procedure; 8:51:16 If on Metformin: Last Dose? 06/07/2016 8:51:20 Previous problem with sedation/anesthesia? No ? 8:51:21 Snore? No 8:51:22 Sleep apnea? No 8:51:24 Deviated septum? No 8:51:25 Lidocaine 2% 20ml vial added to field was given by Merrick Mccoy MD; used for procedure; 8:51:26 Opens mouth fully? Yes 8:51:27 Sticks out tongue? Yes 8:51:28 Airway obstruction? No ? 8:51:32 Dentures? Yes TIGHT 8:51:37 Pre procedure: right dorsailis pedis pulse 2+ Normal; easily identifiable; not easily obliterated 8:51:39 Patient pain scale 0/10 ?. 8:55:53 Vital chart was started 8:56:49 Baseline sample Acquired. 8:56:54 Rhythm: sinus rhythm 8:56:56 Full Disclosure recording started 8:57:06 IV patent on arrival in left forearm with 0.9% NaCl at [facility]. 8:57:18 Right groin area was prepped with chlora-prep and draped in sterile fashion 8:57:19 Alarms reviewed by R. N. 8:57:20 Sharps counted by scrub and verified by R.N. 8:58:16 Use device set Femoral PCI 8:58:19 Tegaderm 4 x 4 opened to sterile field. 8:58:23 Acist Manifold opened to sterile field. 8:58:24 Acist Syringe opened to sterile field. 8:58:25 Acist Hand Control opened to sterile field. 8:58:25 Bag Decanter opened to sterile field. 8:58:26 Medline Cath Pack opened to sterile field. 8:58:26 Terumo 6Fr [place] Sheath opened to sterile field. 8:58:26 St Yon 260cm J .035 wire opened to sterile field. 8:58:27 Merit BasixCompak Inflation Kit opened to sterile field. 8:58:55 Tsang Whisper J 300cm 0.014 guide wire opened to sterile field. 9:10:53 --------ALL STOP TIME OUT------ 9:10:54 Final Timeout: patient, procedure, and site verified with staff and physician. All members of the team are in agreement. 9:10:56 Right groin site verified by team. 9:11:01 Physical assessment completed. ASA score P 2 - A patient with mild systemic disease as per Merrick Mccoy MD. 9:11:04 Sedation plan: IV Moderate Sedation Versed, Fentanyl 9:11:07 Fentanyl 50 mcg I.V. was given by Danuta Kimble RN; for sedation; 9:13:34 Fentanyl 50 mcg I.V. was given by Danuta Kimble RN; for sedation; 9:15:52 Fentanyl 50 mcg I.V. was given by Danuta Kimble RN; for sedation; 9:16:16 Cordis 6FR XBLAD 4.0 guide catheter opened to sterile field. 9:16:27 Procedure started. 9:16:31 Local anesthetic to right femoral artery with Lidocaine 2% by Merrick Mccoy MD.INITIAL ACCESS ONLY 9:18:33 A 6 Fr Short sheath was inserted into the Right Femoral artery 9:18:54 Fentanyl 50 mcg I.V. was given by Danuta Kimble RN; for sedation; 9:18:56 ACC PCI Site: mLAD has 95% stenosis. 9:19:01 6 Fr XBLAD 4 guide catheter was inserted over the wire 9:19:12 Heparin Bolus 4000 units I.V. was given by Danuta Kimble RN; for anticoagulation; dose verified wtih dr mccoy 9:19:45 Buffalo LinPrim Choice PT Extra Support J 300cm .014 gu opened to sterile field. 9:20:27 Choice PT XS wire advanced. 9:21:37 Wire advanced across lesion. 9:22:07 Inflation number: 1 A Euphora 2.0 x 15 Balloon was prepped and advanced across the 2nd Diag, then inflated to 13 KRISTA for 0:10 (min:sec). 9:22:22 Multiple inflations made at 13 Atms. 9:22:41 Inflation number: 2 The Euphora 2.0 x 15 Balloon was reinflated across the 2nd Diag, to 15 KRISTA for 0:10 (min:sec). 9:23:30 Balloon removed over the wire. 9:24:38 Inflation Number: 3 A Medtronic Resolute 2.25 X 18 Stent was prepped and advanced across the 2nd Diag. The stent was deployed at 11 KRISTA for 0:10 (min:sec). 9:25:09 ACC Post-intervention LUCINA Flow is 3. 9:25:10 Stent catheter was removed intact over wire. 9:25:11 Wire removed. 9:25:12 Guide catheter removed. 9:25:19 Cordis 6Fr Exoseal opened to sterile field. 9:25:28 Sheath removed intact; hemostasis achieved with Exoseal to the Right Femoral artery. 9:25:30 Procedure ended.(Physican Out) 9:26:01 Fluoroscopy time 03.40 minutes. 9:26:12 Fluoroscopy dose: 260.45 mGy 9:26:12 Flurop Dose total: 260.45 9::30 Contrast amount:Isovue 300 43ml. 9:26:36 Sharps counted by scrub and verified by R.N. 9::44 Insertion/operative site no bleeding no hematoma. 9:27:02 Post-op/insertion site Right Femoral artery dressed using a 4 x 4 and Tegaderm. 9:27:06 Post right femoral artery:stable, soft, clean and dry 9:27:07 Post Procedure Pulses reassessed and unchanged 9:27:10 Post-procedure physical assessment completed. ASA score P 2 - A patient with mild systemic disease as per Merrick Mccoy MD. 9:27:12 Post procedure rhythm: unchanged. 9::28 Estimated blood loss: 10 ml 9::30 Post procedure instruction explained to patient.Patient verbalizes understanding. 9:27:30 Patient needs reinforcement of post procedure teaching. 9::43 Procedure type changed to Cath procedure, PCI procedure, Coronary Stent Initial, Miscellaneous Procedures, Moderate Sedation up to 15 minutes 9::41 Procedure and supply charges have been captured, reviewed, submitted and are correct. 9:28:42 Procedure Complication : No complications 9::44 Vital chart was stopped 9:28:45 See physician's report for complete and final results. 9:29:01 Patient transfered to Pre/Post Procedure Room with Stretcher. 9:29:03 Procedure ended. 9:29:03 Full Disclosure recording stopped 9:29:46 ACC-PCI Only Patient was given prescriptions, or instructed by Merrick Mccoy MD to start/continue the following medications upon discharge: Plavix 9:29:47 End room use (Document Last) Intervention Summary Intervention Notes Time ActionType Lesion and Equipment Action# Pressure Duration Attributes Used 9:22:07 Inflate 2nd Diag Euphora 1 13 00:10 balloon 2.0 x 15 Balloon 9:22:41 Reinflate 2nd Diag Euphora 2 15 00:10 balloon 2.0 x 15 Balloon 9:24:38 [address] stent 2nd Diag Medtronic 3 11 00:10 Resolute 2.25 X 18 Stent Device Usage Item Name Manufacture Quantity Catalog Number Hospital Part Current [facility] al Lot# / Charge Number Stock Stock Serial# Code Tegaderm 4 3M 1 [id number] [id number] [id number] 5 x 4 Acist Acist 1 46817 947996 909063 686905 5 Manifold Medical Systems Inc Acist Acist 1 85508 811085 803000 574628 20 Syringe Medical Systems Inc Acist Hand Acist 1 40350 446020 198003 206799 5 Control Medical Systems Inc Bag Microtek 1 2002S 134013 00743 635690 5 Decanter Medical Inc. Medline Cardinal 1 [id number] 706733 22985 173866 5 Cath Pack Health Terumo 6Fr Terumo 1 SHP215 840313 630894 496346 [address] Y[address] St Yon 1 590225 132729 567674 102981 30 260cm J .035 wire [facility] Merit 1 [id number] 758196 976494 973741 15 BasixCompak Medical Inflation Kit Tsang [place]ang 1 [id number] 564391 168475 214214 5 Whisper J Vascular 300cm 0.014 guide wire Cordis 6FR Cardinal 1 [id number] 621036 904560 938205 3 XBLAD 4.0 Health guide catheter Buffalo Sci Buffalo 1 [id number] 682210 114753 842598 5 Choice PT Scientific Extra Support J 300cm .014 gu Euphora 2.0 Medtronic 1 [id number] 365519 475014 223502 5 x 15 Balloon Medtronic Medtronic 1 [id number] 083525 111070 3 [id number] Resolute 2.25 X 18 Stent Cordis 6Fr Cardinal 1 EX600 509988 009204 703113 10 [facility] JolieBox Signature Audit Troup Stage Time Signature Unsigned Intra-Procedure 06/08/2016 Sonny Arroyo 9:32:35 AM RT(R) Signatures Monitor : Sonny Arroyo RT Signature : Date : Time : Monitor : Collin Armstrong RT Signature : Date : Time : [facility] [address] [place] [address]
[~2016-06-08 07:33] MED LIST changes: +ASPIRIN325 MG; +COUMADIN5 MG PO; +PROZAC20 MG PO
[2016-06-08 08:17] LABS: BASOPHILS 0.7 % (0.0-2.0); EOSINOPHILS 4.7 % (0-7); HEMATOCRIT 42.6 % (42.0-54.0); HEMOGLOBIN 14.5 g/dL (13.5-17.5); IMMATURE GRANULOCYTES 0.3 % (0-5); LYMPHOCYTES 27.2 % (15-50); MCH 30.5 pg (26.0-34.0); MCV 89.5 fL (80.0-100.0); MEAN PLATELET VOLUME 9.6 fL (7.4-10.4); MONOCYTES 10.7 % (2-11); NEUTROPHILS 56.4 % (40-80); PLATELET COUNT 242 10x3/uL (130-400); RBC 4.76 10x6/uL (4.20-6.10); RDW 13.2 % (11.5-14.5)
[2016-06-08 08:38] LABS: ANION GAP 12.7 mmol/L (8-16); CALCIUM 9.7 mg/dL (8.5-10.1); CARBON DIOXIDE 27.3 mmol/L (21.0-32.0); CREATININE - SERUM 1.4 mg/dL (0.6-1.3)
[2016-06-08 08:39] LABS: INR 1.02 (0.85-1.17); PROTIME 13.2 SECONDS (11.6-15.0)
--- NOTE | 2016-06-08 10:01 | NUR ---
0940 RECEIVED PT FROM AGRONOMY PROFESSOR, PT IS DROWSY, DENIES ANY C/O. 6 FR EXOSEAL CDI TO RIGHT GROIN, AREA IS SOFT WITH NO HEMATOMA OR BLEEDING NOTED. PEDAL PULSES PALPABLE. CAP REFILL IS BRISK, RIGHT FOOT IS WARM TO TOUCH, PINK AND EQUAL IN COLOR AND WARMTH WITH LEFT FOOT. RR IS EVEN AND UNLABORED. AT BEDSIDE. CALL LIGHT IN REACH.
--- NOTE | 2016-06-08 11:32 | NUR ---
1100 PT SLEEPING, AWAKENS EASILY TO VERBAL STIMULI. DENIES ANY C/O. DRESSING TO RIGHT GROIN IS CDI, NO BLEEDING OR HEMATOMA NOTED. PEDAL PULSES PALPABLE. CALL LIGHT IN REACH. PO FLUIDS AT BEDSIDE.
[2016-06-08 11:42] VITALS: BP 146/80; Ht 177.8 cm; Wt 87.7 kg
--- NOTE | 2016-06-08 14:02 | NUR ---
1300 GROIN REMAINS STABLE WITH NO BLEEDING OR HEMATOMA NOTED. PEDAL PULSES PALPABLE. PT DENIES ANY C/O. SANDWICH TRAY SERVED. AT BEDSIDE. 1330 IV HAS BEEN DC'D WITH CATH INTACT. PT DRESSED FOR DC. REVIEWED DC INSTRUCTIONS WITH PT WHO VERBALIZES UNDERSTANDING. WRITTEN COPIES PROVIDED. PT ESCORTED TO PRIVATE AUTO VIA WC BY STAFF WITH DRIVING HIM HOME.
--- NOTE | 2016-06-18 08:46 | OP ---
PATIENT NAME: AMRIT GABRIEL MEDICAL RECORD: [id number] :46 LOCATION:D.CAT ADMISSION DATE: SURGEON: RENZO JOHNSTON MD DATE OF OPERATION: 06/08/2016 PROCEDURES: 1. PTCA stent LAD. 2. Selective coronary angiography. INDICATION: Angina and coronary artery disease. PROCEDURE IN DETAIL: After informed consent was obtained and after a detailed explanation of the risks, benefits as well as alternative therapies, the patient elected to proceed with angiogram and angioplasty. The right femoral area was prepped and draped in normal sterile fashion. Right femoral artery was cannulated via modified Seldinger technique with placement of 6-Maori sheath. All catheters exchanged through this sheath. FINDINGS: The left anterior descending had a 95% stenosis in the mid vessel. This was addressed with a 2.25 x 18 mm Resolute stent. Result was 0% residual stenosis. OVERALL IMPRESSION: Successful percutaneous transluminal coronary angioplasty stent of the left anterior descending going from 95% initial stenosis to 0% residual. TRANSINT:[id number] Voice Confirmation ID: [id number] DOCUMENT ID: [id number] RENZO JOHNSTON MD at 0846 CC: [id number] DICTATION DATE: 06/08/1630 COACH BUILDER: 06/08/16 1715 [facility] CLI 06/08/16 [id number] [place] [address]
--- NOTE | 2016-06-18 08:46 | HP ---
PATIENT: AMRIT MEJIA MEDICAL RECORD: [id number] ACCOUNT: [id number] LOCATION:RONAN : 46 ADMISSION DATE: 06/08/16 HISTORY AND PHYSICAL EXAMINATION ADMITTING DIAGNOSES: 1. Angina. 2. Coronary artery disease. 3. Recent percutaneous transluminal coronary angioplasty stent left circumflex and right coronary artery with significant disease in left anterior descending. 4. Hypertension. 5. Hyperlipidemia. HISTORY OF PRESENT ILLNESS: Mr. Mejia presents with anginal symptomatology and found to have 3-vessel coronary artery disease, underwent successful PTCA stent of the left circumflex and RCA. He is now brought back for PTCA stent of the LAD. PHYSICAL EXAMINATION: GENERAL APPEARANCE: Well-nourished, well-developed, appears stated age. Level of distress, comfortable. PSYCHIATRIC: Mental status, alert, normal affect. Orientation, oriented to time, place and person. EYES: Lids and conjunctiva, noninjected. No discharge, no pallor. ENT: Lips, teeth, gums, normal dentition. Oropharynx, no cyanosis, no pallor. NECK: Carotid arteries, bilateral normal upstroke, no bruits, no thrills. JUGULAR VEINS: No jugular venous pressure or distention. CERVICAL LYMPH NODES: Nontender, nonenlarged. THYROID: Not enlarged. Nontender. No nodules. LUNGS: Respiratory effort, unlabored. CHEST: Normal curvature. No thoracic deformity. No chest wall tenderness. Percussion, resonant. Auscultation, clear. No wheezes, no rales, no rhonchi. CARDIOVASCULAR: Precordial exam, nondisplaced. No heaves or pericardial thrills. Rate and rhythm, regular. Heart sounds, normal S1, normal S2. No S3, no gallop, no rub. Systolic murmur, not heard. Diastolic murmur, not heard. EXTREMITIES: No cyanosis, no edema. Peripheral pulses, full and equal in all extremities, except as noted. No bruits appreciated. ABDOMEN: Soft, nondistended. Normal aorta. No bruit. Nontender. No masses. Liver, nontender, no hepatomegaly. Spleen, nontender, no splenomegaly. MUSCULOSKELETAL: No joint tenderness. No joint swelling. No erythema. NEUROLOGICAL: Normal gait, normal strength, normal tone. SKIN: Warm and dry REVIEW OF SYSTEMS: The patient reports easy bruising but reports no swollen glands. The patient reports no fever, no night sweats, no significant weight gain, no significant weight loss. No significant exercise tolerance. The patient reports no dry eyes, no irritation, no vision change. Patient reports no difficulty hearing and no ear pain. Patient reports no frequent nose bleeds or nose and sinus problems. Patient reports on arm pain on exertion. No shortness of breath while lying down. No history of heart murmur. Patient reports no cough, no wheezing or coughing up blood. Patient reports no abdominal pain, no vomiting. Normal appetite. No diarrhea and not vomiting blood. No nausea and no constipation. Patient reports no incontinence. No difficulty urinating. No hematuria. No increased frequency. Patient reports no muscle aches. No weakness, no arthralgias, no back pain. No swelling of the HISTORY AND PHYSICAL [id number] AMRIT MEJIA extremities. Patient reports no abnormal mole, no jaundice, no rashes. Reports no loss of consciousness. No weakness and no numbness. No seizures, dizziness, or headaches. The patient reports no depression, no sleep disturbance, feeling safe in a relationship and no alcohol abuse. Patient reports on fatigue. Reports no runny nose or sinus pressure. No itching, no hives, and no frequent sneezing. OVERALL IMPRESSION: Anginal symptomatology with significant disease of the left anterior descending. We will proceed with percutaneous transluminal coronary angioplasty stent of the left anterior descending TRANSINT:[id number] Voice Confirmation ID: [id number] DOCUMENT ID: [id number] RENZO JOHNSTON MD at 0846 CC: [id number] DICTATION DATE: 06/08/16851 BUILD AUTOMATION ENGINEER: 06/08/16 1034 [facility] CLI 06/08/16 [facility] [address] [place] [address]
== END 2016-06-08 13:30 | disposition home or self-care (01) ==
LOC: D.CATH 07:33
PROVIDERS: Internal Medicine Interventional Cardiology
DX: I25.119 Atherosclerotic heart disease of native coronary artery with unspecified angina pectoris (principal); Z95.5 Presence of coronary angioplasty implant and graft; I10 Essential (primary) hypertension; E78.5 Hyperlipidemia, unspecified

== ENCOUNTER 2017-03-15 14:21 | Observation (INO) | payer MEDICARE, MEDICAID ==
[~2017-03-15] VITALS: Ht 177.8 cm; Wt 84.2 kg
--- NOTE | ~2017-03-15 | HEMODYNAMI ---
PATIENT:AMRIT GABRIEL MEDICAL RECORD: [id number] : 46 LOCATION:[place] [address] ADMISSION DATE: 03/15/17 Generatedon:03/16/201712:37 Patient name: AMRIT GABRIEL Patient #: [id number] : 1950 Date of study: 03/16/2017 Page: Of Hemodynamic Procedure Report Patient Data Patient Demographics Procedure consent was obtained First Name: AMRIT Gender: Male Last Name: HARVEY : 1950 Middle Initial: F Age: 67 year(s) Patient #: [id number] Race: SSN: [id number] Additional ID: [id number] Contact details Address: [address] [place] [address] State: [place] City: [facility] Zip code: [address] Past Medical History Allergies: No known allergies Admission Admission Data Admission Date: 03/15/2017 Admission Time: 16:08 Room #: [facility] Procedure Procedure Types Cath Procedure Diagnostic Procedure [facility] w/Coronaries PCI Procedure Coronary Stent Coronary Stent Initial Miscellaneous Procedures Moderate Sedation up to 30 minutes Procedure Description Procedure Date Procedure Date: 03/16/2017 Procedure Start Time: 12:12 Procedure End Time: 12:36 Procedure Staff Name Function Merrick Mccoy MD Performing Physician Zakiya Abraham RT Scrub Collin Armstrong RT Monitor Hiren Gaitan RN Nurse Procedure Data Cath Procedure Fluoroscopy Diagnostic fluoroscopy Total fluoroscopy Time: 4.6 time: 4.6 min min Diagnostic fluoroscopy Total fluoroscopy dose: 913 dose: 913 mGy mGy Contrast Material Contrast Material Type Amount (ml) Isovue 300 107 Entry Location Entry Primary Successful Side Size Upsize Upsize Entry Closure Succes sful Closure Location (Fr) 1 (Fr) 2 (Fr) Remarks Device Remarks Femoral Right 5 Fr 6 Fr Exoseal artery Short Estimated blood loss: 10 ml Diagnostic catheters Device Type Used For End Catheter Placement Cordis 5Fr Pigtail Procedure Catheter (MP) Cordis 5Fr JL 4.0 Procedure Catheter (MP) Cordis 5Fr 3DRC Catheter Procedure (MP) Procedure Complications No complications Procedure Medications Medication Administration Route Dosage Oxygen NC 2 l/min 0.9% NaCl I.V. 100 ml/hr Heparin Flush Bag added to field 2 bags (1000units/500ml NS) Fentanyl I.V. 100 mcg Fentanyl I.V. 100 mcg Heparin Bolus I.V. 4000 units Plavix P.O. 75 mg Hemodynamics Rest Heart Rate: 73 (bpm) Pressure Samples Time Site Value (mmHg) Purpose Heart Use Rate(bpm) 12:23 AO 159/66(105) Snapshot 79 Snapshots Pre Cath Intra NCS Post Cath Vital Signs Time Heart Resp SPO2 etCO2 NIBP (mmHg) Rhythm Pain Sedation Rate (ipm) (%) (mmHg) Status Level (bpm) 11:57:23 76 17 97 0 165/88(137) NSR 0 (11) 10(A) , No pain 12:02:10 74 18 96 31 165/90(136) NSR 0 (11) 10(A) , No pain 12:06:56 76 19 95 21.9 159/89(129) NSR 0 (11) 10(A) , No pain 12:11:41 74 19 96 34.7 166/92(129) NSR 0 (11) 10(A) , No pain 12:16:24 73 18 95 31 157/91(128) NSR 0 (11) 10(A) , No pain 12:21:08 77 17 96 31.8 150/91(125) NSR 0 (11) 10(A) , No pain 12:25:57 70 16 97 12.8 152/78(123) NSR 0 (11) 10(A) , No pain 12:30:44 64 18 98 34.7 139/82(115) NSR 0 (11) 10(A) , No pain 12:35:33 64 28 98 27.9 133/70(105) NSR 0 (11) 10(A) , No pain Medications Time Medication Route Dose Verified Delivered Reason Notes Effectiveness by by 12:10:40 Oxygen NC 2 Merrick Maradiaga Per physician l/min Darius Gaitan RN 12:10:52 0.9% NaCl I.V. 100 Merrick Maradiaga Per physician ml/hr Darius Gaitan RN 12:11:02 Heparin Flush added 2 Merrick Hiren used for Bag to bags Darius Gaitan RN procedure (1000units/500ml field NS) 12:13:09 Fentanyl I.V. 100 Merrick Lopezy for sedation mcg Darius Gaitan RN 12:17:13 Fentanyl I.V. 100 Merrick Maradiaga for sedation mcg Darius Gaitan RN 12:20:58 Heparin Bolus I.V. 4000 Merrick Maradiaga for units Darius Gaitan RN anticoagulation 12:31:20 Plavix P.O. 75 mg Merrick Maradiaga for Darius Gaitan RN antiplatelet therapy Procedure Log Time Note 11:35:45 Hiren Gaitan RN sent for patient. Start room use. 11:43:46 Time tracking: Regular hours 11:43:52 Plan of Care:Hemodynamics will remain stable., Cardiac rhythm will remain stable., Comfort level will be maintained., Respiratory function will remain adequate., Patient/ family verbilizes understanding of procedure., Procedure tolerated without complication., Recovers from procedure without complications.. 11:52:04 Patient received from PCU to CCL 1 Alert and oriented. Tansferred to table in Supine position. 11:52:06 Warm blankets applied, and sandor hugger turned on for patient comfort. 11:52:06 Correct patient and procedure confirmed by team. 11:52:08 Signed procedure consent form obtained from patient. 11:52:08 ECG and BP/O2 sat monitors applied to patient. 11:56:01 Lab Result : Creatinine 1.4 mg/dl 11:56:01 Lab Result : BUN 27 mg/dl 11:56:01 Lab Result : Hematocrit 43.6 % 11:56:01 Lab Result : Hemoglobin 14.9 g/dl 11:56:14 Vital chart was started 11:56:15 Baseline sample Acquired. 11:56:20 Pre-procedure instructions explained to patient. 11:56:21 Pre-op teaching completed and patient verbalized understanding. 11:56:27 Family in patients room. 11:56:28 Patient NPO since Midnight. 11:56:33 Patient allergic to No known allergies 11:56:35 Is the patient allergic to Iodine/contrast media? No. 11:56:36 Is patient on blood thinner?Yes 11:56:38 ACC The patient was administered the following blood thiners within the last 24 hours: ACCPlavix 11:56:39 Patient diabetic? Yes. 11:56:40 If diabetic: On Metformin? Yes 11:56:43 If on Metformin: Last Dose? 03/15/2017 11:56:46 Previous problem with sedation/anesthesia? No ? 11:56:47 Snore? Yes 11:56:48 Sleep apnea? No 11:56:49 Deviated septum? No 11:56:50 Opens mouth fully? Yes 11:56:51 Sticks out tongue? Yes 11:57:14 Airway obstruction? No ? 11:57:17 Dentures? Yes OUT 11:57:32 Pre procedure: right dorsailis pedis pulse 1+ Palpable, but thready & weak; easily obliterated 11:57:34 Patient pain scale 0/10 ?. 11:58:27 IV patent on arrival in right forearm with 0.9% NaCl at [facility]. 11:58:30 Lab results completed and on chart. 11:58:34 Right groin area was prepped with chlora-prep and draped in sterile fashion 11:58:35 Alarms reviewed by R. N. 11:58:37 Sharps counted by scrub and verified by R.N. 11:58:49 Rhythm: sinus rhythm 11:58:57 Use device set Femoral Dx 11:58:58 Tegaderm 4 x 4 opened to sterile field. 11:58:59 Acist Manifold opened to sterile field. 11:59:00 Acist Hand Control opened to sterile field. 11:59:01 Acist Syringe opened to sterile field. 11:59:01 Bag Decanter opened to sterile field. 11:59:01 Medline Cath Pack opened to sterile field. 11:59:02 Terumo 5Fr [place] Sheath opened to sterile field. 11:59:03 St Yon 260cm J .035 wire opened to sterile field. 11:59:04 Diagnostic Infinity 5Fr Multipack catheter opened to sterile field. 12:02:34 --------ALL STOP TIME OUT------ 12:02:35 Final Timeout: patient, procedure, and site verified with staff and physician. All members of the team are in agreement. 12:02:37 Right groin site verified by team. 12:02:42 Physical assessment completed. ASA score P 2 - A patient with mild systemic disease as per Merrick Mccoy MD. 12:02:46 Sedation plan: IV Moderate Sedation Medication:Versed, Fentanyl 12:10:40 Oxygen 2 l/min NC was administered by Hiren aGitan RN; Per physician; 12:10:52 0.9% NaCl 100 ml/hr I.V. was administered by Hiren Gaitan RN; Per physician; 12:11:02 Heparin Flush Bag (1000units/500ml NS) 2 bags added to field was administered by Hiren Gaitan RN; used for procedure; 12:12:41 Procedure started. 12::41 Full Disclosure recording started 12:12:44 Local anesthetic to right femoral artery with Lidocaine 2% by Merrick Mccoy MD.INITIAL ACCESS ONLY 12:13:09 Fentanyl 100 mcg I.V. was administered by Hiren Gaitan RN; for sedation; 12:15:10 A 5 Fr sheath was inserted into the Right Femoral artery 12:15:16 A Cordis 5Fr Pigtail Catheter (MP) was advanced over the wire and used for Procedure. 12:15:28 LV angiography performed. 12:15:34 LV gram done using BULL 12:15:40 EF : 50 % 12:15:44 Injector settings: Ml/sec: 10, Volume: 20, 12:15:46 Catheter removed. 12:15:51 A Cordis 5Fr JL 4.0 Catheter (MP) was advanced over the wire and used for Procedure. 12:16:03 LCA angiography performed. 12:17:00 Catheter removed. 12:17:05 A Cordis 5Fr 3DRC Catheter (MP) was advanced over the wire and used for Procedure. 12:17:13 Fentanyl 100 mcg I.V. was administered by Hiren Gaitan RN; for sedation; 12:17:57 RCA angiography performed. 12:18:05 Terumo 6Fr [place] Sheath opened to sterile field. 12:18:05 Merit BasixCompak Inflation Kit opened to sterile field. 12:18:12 Cordis 6FR XBLAD 3.5 SH guide catheter opened to sterile field. 12:18:35 Lamesa Fliqz Choice PT Extra Support 182cm wire opened to sterile field. 12:18:40 Catheter removed. 12:19:02 Sheath upsized to a 6 Fr Short. 12:19:34 Study PCI Site: [place] mCirc has 90% stenosis. 12:19:36 ACC Pre-intervention LUCINA Flow is 3. 12:20:31 6 Fr XBLAD 3.5 SH guide catheter was inserted over the wire 12:20:44 Choice PT XS wire advanced. 12::58 Heparin Bolus 4000 units I.V. was administered by Hiren Gaitan RN; for anticoagulation; 12:21:30 Wire advanced across lesion. 12:24:15 Inflation number: 1 A Euphora 2.0 x 15 Balloon was prepped and advanced across the Dist CX, then inflated to 11 KRISTA for 0:10 (min:sec). 12:26:00 Multiple inflations made at 11 Atms. 12:27:00 Balloon removed over the wire. 12:27:17 Inflation Number: 2 A Amol RX 2.25 x 15 stent was prepped and advanced across the Dist CX. The stent was deployed at 13 KRISTA for 0:10 (min:sec). 12:27:42 ACC Post-intervention LUCINA Flow is 3. 12::44 Stent catheter was removed intact over wire. 12:27:45 Wire removed. 12:27:45 Guide catheter removed. 12:28:05 Cordis 6Fr Exoseal opened to sterile field. 12:28:50 Sheath removed intact; hemostasis achieved with Exoseal to the Right Femoral artery. 12::58 Procedure ended.(Physican Out) 12:31:20 Plavix 75 mg P.O. was administered by Hiren Gaitan RN; for antiplatelet therapy; 12:32:30 Fluoroscopy time 04.60 minutes. ::34 Fluoroscopy dose: 913 mGy 12::34 Flurop Dose total: 913 12:32:39 Contrast amount:Isovue 300 107ml. 12:32:41 Sharps counted by scrub and verified by R.N. 12:32:42 Insertion/operative site no bleeding no hematoma. 12:32:49 Post-op/insertion site Right Femoral artery dressed using a 4 x 4 and Tegaderm. 12:32:52 Post Procedure Pulses reassessed and unchanged 12:32:55 Post-procedure physical assessment completed. ASA score P 2 - A patient with mild systemic disease as per Merrick Mccoy MD. 12:33:18 Post procedure rhythm: unchanged. 12:33:23 Estimated blood loss: 10 ml 12:33:25 Post procedure instruction explained to patient.Patient verbalizes understanding. 12:33:26 Patient needs reinforcement of post procedure teaching. 12:33:41 Procedure type changed to Cath procedure, Diagnostic procedure, LHC, C w/Coronaries, PCI procedure, Coronary Stent, Coronary Stent Initial, Miscellaneous Procedures, Moderate Sedation up to 30 minutes 12:33:45 Procedure Complication : No complications 12:34:07 Procedure and supply charges have been captured, reviewed, submitted and are correct. 12:36:41 Vital chart was stopped 12:36:41 See physician's report for complete and final results. 12:36:44 Report given to PCU. 12:36:47 Patient transfered to PCU with Bed. 12:36:50 Procedure ended. 12:36:50 Full Disclosure recording stopped 12:36:54 End room use (Document Last) Intervention Summary Intervention Notes Time ActionType Lesion and Equipment Action# Pressure Duration Attributes Used 12:24:15 Inflate Dist CX Euphora 1 11 00:10 balloon 2.0 x 15 Balloon 12:27:17 Place stent Dist CX Albert RX 2 13 00:10 2.25 x 15 stent Device Usage Item Name Manufacture Quantity Catalog Number Hospital Part Current Mini mal Lot# / Charge Number Stock Stock Serial# Code Tegaderm 4 1 [id number] [id number] 5 x 4 Acist Acist 1 52982 291908 520809 069767 5 Manifold Medical Systems Inc Acist Hand Acist 1 41144 566377 897116 119844 5 Control Medical Systems Inc Acist Acist 1 15942 660552 574745 217586 20 Syringe Medical Systems Inc Bag Microtek 1 2002S 042153 45287 476698 5 DecRiffTrax Inc. Medline Cardinal 1 [id number] 323595 30883 218406 5 Cath Pack Health Terumo 5Fr Terumo 1 [id number] 789823 148502 122807 [address] Y[address] St Yon 1 264112 308574 047039 619603 30 260cm J .035 wire Diagnostic Cardinal 1 [id number] 455081 30332 044843 30 Infinity Health 5Fr Multipack catheter Cordis 5Fr Cardinal 1 [id number] 5 Pigtail Health Catheter (MP) Cordis 5Fr Cardinal 1 292956 5 JL 4.0 Health Catheter (MP) Cordis 5Fr Cardinal 1 185626 5 3DRC Health Catheter (MP) Terumo 6Fr Terumo 1 [id number] 864078 513786 997615 40 [place] Sheath Merit Merit 1 UO1930 245926 292740 485865 15 BasixCompak Medical Inflation Kit Cordis 6FR Cardinal 1 [id number] 259143 549343 903139 3 XBLAD 3.5 Health guide catheter Lamesa Sci Lamesa 1 [id number] 210862 562530 832866 5 Choice PT Scientific Extra Support 182cm wire Euphora 2.0 Medtronic 1 [id number] 268921 072753 301388 5 [id number] x 15 Balloon Albert RX Medtronic 1 [id number] 624465 6349118 497542 5 [id number] 2.25 x 15 stent Cordis 6Fr Cardinal 1 EX600 329002 884158 483815 10 [facility] Signature Audit [place] Stage Time Signature Unsigned Intra-Procedure 03/16/2017 Collin Armstrong 12:37:11 PM RT(R) Signatures Monitor : Collin Armstrong RT Signature : Date : Time : [place] [id number] [place] [address]
[2017-03-15 14:56] LABS: BASOPHILS 0.4 % (0-2); EOSINOPHILS 0.9 % (0-7); HEMATOCRIT 43.6 % (42.0-54.0); HEMOGLOBIN 14.9 g/dL (13.5-17.5); IMMATURE GRANULOCYTES 0.2 % (0-5); LYMPHOCYTES 13.4 % (15-50); MCH 30.7 pg (26.0-34.0); MCHC 34.2 g/dL (31.0-37.0); MCV 89.7 fL (80.0-100.0); MEAN PLATELET VOLUME 9.3 fL (7.4-10.4); MONOCYTES 5.5 % (2-11); NEUTROPHILS 79.6 % (40-80); PLATELET COUNT 222 10x3/uL (130-400); RBC 4.86 10x6/uL (4.20-6.10); RDW 13.3 % (11.5-14.5); WBC 13.2 10x3/uL (4.8-10.8)
[2017-03-15 15:44] LABS: ALBUMIN 4.2 g/dL (3.4-5.0); ALKALINE PHOSPHATASE 75 U/L (46-116); ALT (SGPT) 26 U/L (10-68); BILIRUBIN - TOTAL 0.59 mg/dL (0.2-1.3); CALC OSMOLALITY 287 mosm/kg (275-300); CALCIUM 9.9 mg/dL (8.5-10.1); CARBON DIOXIDE 24.2 mmol/L (21.0-32.0); CHLORIDE - SERUM 102 mmol/L (98-107); CREATININE - SERUM 1.4 mg/dL (0.6-1.3); GLUCOSE 175 mg/dL (74-106); POTASSIUM - SERUM 4.4 mmol/L (3.5-5.1); PROTEIN - SERUM 7.6 g/dL (6.4-8.2); SODIUM 140 mmol/L (136-145); UREA NITROGEN 27 mg/dL (7-18); eGFR NON AFRICAN AMERICAN 53 mL/min (90-120)
[2017-03-15 15:56] LABS: CHOL - HDL RATIO 3.8 ratio (2.3-4.9); CHOLESTEROL, TOTAL 174 mg/dL (0-200); CKMB 4.6 U/L (0.0-3.6); CREATINE KINASE 140 UL (21-232); HDL CHOLESTEROL 46 mg/dL (32-96); LDL CHOLESTEROL 105 mg/dL (0-100); LDL-HDL RATIO 2.3 ratio (1.5-3.5); TRIGLYCERIDE 115 mg/dL (30-200); TROPONIN-I 0.031 ng/mL (0.000-0.060)
[2017-03-15] MEDS ORDERED: PRAVACHOL40 MG PO (16:58)
[2017-03-15 16:59] VITALS: BP 169/76; BMI 28.0
[2017-03-15] MEDS ORDERED: CO Q-10100 MG PO (16:59)
[2017-03-15] MEDS ORDERED: AMBIEN10 MG PO (20:47)
[2017-03-15 20:55] VITALS: BP 176/94
[2017-03-16 00:45] VITALS: BP 136/78
[2017-03-16 06:12] VITALS: BP 167/85
[2017-03-16 07:47] VITALS: BP 145/74
[2017-03-16 10:32] LABS: BASOPHILS 0.4 % (0-2); EOSINOPHILS 2.5 % (0-7); HEMATOCRIT 43.9 % (42.0-54.0); HEMOGLOBIN 14.7 g/dL (13.5-17.5); IMMATURE GRANULOCYTES 0.1 % (0-5); LYMPHOCYTES 25.2 % (15-50); MCH 30.4 pg (26.0-34.0); MCHC 33.5 g/dL (31.0-37.0); MCV 90.9 fL (80.0-100.0); MEAN PLATELET VOLUME 9.6 fL (7.4-10.4); MONOCYTES 8.9 % (2-11); NEUTROPHILS 62.9 % (40-80); PLATELET COUNT 228 10x3/uL (130-400); RBC 4.83 10x6/uL (4.20-6.10); RDW 13.5 % (11.5-14.5)
[2017-03-16 10:40] LABS: WBC 8.4 10x3/uL (4.8-10.8)
[2017-03-16 10:49] LABS: ANION GAP 13.6 mmol/L (8-16); CALCIUM 9.2 mg/dL (8.5-10.1); CARBON DIOXIDE 28.3 mmol/L (21.0-32.0); CREATININE - SERUM 1.3 mg/dL (0.6-1.3); POTASSIUM - SERUM 3.9 mmol/L (3.5-5.1)
[2017-03-16 11:24] VITALS: Ht 177.8 cm; Wt 84.2 kg
--- NOTE | 2017-03-21 09:02 | OP ---
PATIENT NAME: AMRIT GABRIEL MEDICAL RECORD: [id number] :46 LOCATION:D.M2 D.0 ADMISSION DATE:03/15/17 SURGEON: RENZO JOHNSTON MD DATE OF OPERATION: 03/16/2017 PROCEDURES: 1. PTCA stent to left circumflex. 2. Left heart catheterization. 3. Selective coronary angiography. 4. Left ventriculogram. INDICATION: Angina and coronary artery disease. PROCEDURE IN DETAIL: After informed consent was obtained and after a detailed explanation of risks, benefits as well as alternative therapies, the patient elected to proceed with angiogram and angioplasty. The right femoral area was prepped and draped in normal sterile fashion. Right femoral artery was cannulated via modified Seldinger technique with placement of 6-Tajik sheath. All catheters exchanged through this sheath. FINDINGS: Left ventriculogram was performed in standard 30-degree BULL view, reveals preserved cardiac wall motion, ejection fraction 50%. SELECTIVE CORONARY ANGIOGRAPHY: 1. Left main is tortuous, but no significant disease. 2. Left anterior descending has previously placed stents, these are widely patent with no significant restenosis. No disease elsewise at the LAD or its branches. 3. The left circumflex has previously placed stent that is widely patent. However, there is a 90% stenosis in the distal vessel after the stent. 4. The right coronary artery has previously placed stents, these are widely patent with no significant restenosis. No disease elsewise throughout the RCA or its branches. PTCA STENT OF THE LEFT CIRCUMFLEX: The stent used was a 2.25 x 15 mm Amol. Result was 0% residual stenosis. OVERALL IMPRESSION: Successful percutaneous transluminal coronary angioplasty stent of the left circumflex going from 90% initial stenosis to 0% residual stenosis. TRANSINT:[id number] Voice Confirmation ID: [id number] DOCUMENT ID: [id number] RENZO JOHNSTON MD at 0902 CC: [id number] DICTATION DATE: 03/16/17 1240 RELIGION INSTRUCTOR: 03/16/17 1254 DIS IN 03/16/[address] [facility] [address] [place] [address]
--- NOTE | 2017-03-21 09:02 | DS ---
PATIENT:AMRIT GABRIEL :46 MEDICAL RECORD: [id number] DISCHARGE SUMMARY ADMISSION DATE: 03/15/17 DISCHARGE DATE: 03/16/17 DISCHARGE DIAGNOSES: 1. Unstable angina. 2. Coronary artery disease. 3. Percutaneous transluminal coronary angioplasty stent of left circumflex this admission. 4. Hyperlipidemia. 5. Hypertension. HOSPITAL COURSE: This is a gentleman who presents with anginal symptomatology, found to have significant disease of the circumflex, underwent successful PTCA stent of the circumflex. He was discharged home with no change in his medications as he is already on aspirin and Plavix. Will follow up with [facility] in 1 month. TRANSINT:[id number] Voice Confirmation ID: [id number] DOCUMENT ID: [id number] RENZO JOHNSTON MD at 0902 CC: [id number] DICTATION DATE: 03/16/17 1238 STICK PULLER: 03/16/17 1250 DIS IN 03/16/17 [place] [id number] [place] [address]
--- NOTE | 2017-03-23 13:00 | HP ---
PATIENT: AMRIT GABRIEL MEDICAL RECORD: [id number] ACCOUNT: [id number] LOCATION:[address] : [birth year] ADMISSION DATE: 03/15/17 HISTORY AND PHYSICAL EXAMINATION HISTORY OF PRESENT ILLNESS: A 67-year-old gentleman with a known history of coronary artery disease, status post intervention via Dr. Mccoy. He had intervention to the LAD in May of this year. He did fairly well until yesterday. He was outside [employer]. He had onset of angina accompanied by shortness of breath, some nausea. His typical anginal symptoms. We were asked to see him concerning his cardiovascular status. PAST MEDICAL HISTORY: Includes; 1. History of hypertension. 2. Hyperlipidemia. 3. Diabetes mellitus. ALLERGIES: No known drug allergies. SOCIAL HISTORY: , nonsmoker. Easily takes care of all ADLs. He is able to do hand activities such as cutting with alex, etc. MEDICATIONS: Include Plavix 75 every day, pravastatin 40 every day, Hytrin 2 every day, aspirin 81 every day, Prozac every day, Ambien 10 at bedtime p.r.n., and Glucophage 850 b.i.d. REVIEW OF SYSTEMS: The patient reports easy bruising but reports no swollen glands. The patient reports no fever, no night sweats, no significant weight gain, no significant weight loss. No significant exercise tolerance. The patient reports no dry eyes, no irritation, no vision change. Patient reports no difficulty hearing and no ear pain. Patient reports no frequent nose bleeds or nose and sinus problems. Patient reports on arm pain on exertion. No shortness of breath while lying down. No history of heart murmur. Patient reports no cough, no wheezing or coughing up blood. Patient reports no abdominal pain, no vomiting. Normal appetite. No diarrhea and not vomiting blood. No nausea and no constipation. Patient reports no incontinence. No difficulty urinating. No hematuria. No increased frequency. Patient reports no muscle aches. No weakness, no arthralgias, no back pain. No swelling of the extremities. Patient reports no abnormal mole, no jaundice, no rashes. Reports no loss of consciousness. No weakness and no numbness. No seizures, dizziness, or headaches. The patient reports no depression, no sleep disturbance, feeling safe in a relationship and no alcohol abuse. Patient reports on fatigue. Reports no runny nose or sinus pressure. No itching, no hives, and no frequent sneezing. PHYSICAL EXAMINATION: GENERAL: Somewhat anxious gentleman in no acute distress. VITAL SIGNS: Blood pressure 145/74 and pulse 69 and regular. HEENT: Normocephalic, atraumatic. NECK: No bruits noted. HEART: Regular. LUNGS: Kingsley clear. ABDOMEN: Soft, nontender. EXTREMITIES: Pulses are 2+ with no edema. NEUROLOGIC: Grossly intact. HISTORY AND PHYSICAL [id number] AMRIT GABRIEL DIAGNOSTIC DATA: ECG without acute change. IMPRESSION: Acute coronary syndrome well within window of restenosis. PLAN: Plan for angiography, intervention based on the above. TRANSINT:[id number] Voice Confirmation ID: [id number] DOCUMENT ID: [id number] KURT VICKERS MD at 1300 CC: [id number] DICTATION DATE: 03/16/17 0858 TENTERER: 03/16/17 0934 DIS IN 03/16/17 [place] [address] [place] [address]
== END 2017-03-16 17:59 | disposition home or self-care (01) ==
LOC: D.ER 14:21 → D.M2 16:08 → OBSVTIME 16:08 → D.M2 03-16 17:59
PROVIDERS: Emergency Medicine; Internal Medicine Interventional Cardiology; ADMIT Internal Medicine Interventional Cardiology
DX: I25.110 Atherosclerotic heart disease of native coronary artery with unstable angina pectoris (principal); I10 Essential (primary) hypertension; E78.5 Hyperlipidemia, unspecified; E11.9 Type 2 diabetes mellitus without complications
CPT/HCPCS: 93458; C9600

== ENCOUNTER 2017-06-05 10:34 | Emergency (ER) | payer MEDICARE, MEDICAID ==
[2017-03-16 11:24] VITALS: BMI 26.6
--- NOTE | ~2017-06-05 | CN ---
PATIENT NAME:AMRIT MEJIA MEDICAL RECORD: [id number] : 46 LOCATION:.ER ADMIT DATE: ACCOUNT: [id number] CONSULTING PHYSICIAN: RENZO JOHNSTON MD REFERRING PHYSICIAN: PARISH MONSON MD DATE OF CONSULTATION: 06/05/2017 CARDIOLOGY CONSULT DIAGNOSES: 1. Angina. 2. Coronary artery disease. 3. Hypertension. 4. Hyperlipidemia. HISTORY: Mr. Mejia has history of coronary artery disease. Last cardiac intervention was drug-eluting stent in February of 2017. He was carrying wood today. He got chest pain and chest discomfort compatible with angina. He took sublingual nitro at home. He continued to have chest pain. He took a second sublingual and headed to the Emergency Room. When he got to the Emergency Room, his pain had spontaneously abated. He has not had any episodes of chest pain since. He has no EKG changes. Troponin is normal. REVIEW OF SYSTEMS: The patient reports easy bruising but reports no swollen glands. The patient reports no fever, no night sweats, no significant weight gain, no significant weight loss. No significant exercise tolerance. The patient reports no dry eyes, no irritation, no vision change. Patient reports no difficulty hearing and no ear pain. Patient reports no frequent nose bleeds or nose and sinus problems. Patient reports on arm pain on exertion. No shortness of breath while lying down. No history of heart murmur. Patient reports no cough, no wheezing or coughing up blood. Patient reports no abdominal pain, no vomiting. Normal appetite. No diarrhea and not vomiting blood. No nausea and no constipation. Patient reports no incontinence. No difficulty urinating. No hematuria. No increased frequency. Patient reports no muscle aches. No weakness, no arthralgias, no back pain. No swelling of the extremities. Patient reports no abnormal mole, no jaundice, no rashes. Reports no loss of consciousness. No weakness and no numbness. No seizures, dizziness, or headaches. The patient reports no depression, no sleep disturbance, feeling safe in a relationship and no alcohol abuse. Patient reports on fatigue. Reports no runny nose or sinus pressure. No itching, no hives, and no frequent sneezing. PHYSICAL EXAMINATION: GENERAL APPEARANCE: Well-nourished, well-developed, appears stated age. Level of distress, comfortable. PSYCHIATRIC: Mental status, alert, normal affect. Orientation, oriented to time, place and person. EYES: Lids and conjunctiva, noninjected. No discharge, no pallor. ENT: Lips, teeth, gums, normal dentition. Oropharynx, no cyanosis, no pallor. NECK: Carotid arteries, bilateral normal upstroke, no bruits, no thrills. JUGULAR VEINS: No jugular venous pressure or distention. CERVICAL LYMPH NODES: Nontender, nonenlarged. THYROID: Not enlarged. Nontender. No nodules. LUNGS: Respiratory effort, unlabored. CHEST: Normal curvature. No thoracic deformity. No chest wall tenderness. CONSULT REPORT [id number] AMRIT MEJIA Percussion, resonant. Auscultation, clear. No wheezes, no rales, no rhonchi. CARDIOVASCULAR: Precordial exam, nondisplaced. No heaves or pericardial thrills. Rate and rhythm, regular. Heart sounds, normal S1, normal S2. No S3, no gallop, no rub. Systolic murmur, not heard. Diastolic murmur, not heard. EXTREMITIES: No cyanosis, no edema. Peripheral pulses, full and equal in all extremities, except as noted. No bruits appreciated. ABDOMEN: Soft, nondistended. Normal aorta. No bruit. Nontender. No masses. Liver, nontender, no hepatomegaly. Spleen, nontender, no splenomegaly. MUSCULOSKELETAL: No joint tenderness. No joint swelling. No erythema. NEUROLOGICAL: Normal gait, normal strength, normal tone. SKIN: Warm and dry. OVERALL IMPRESSION: Anginal symptomatology with exertion, resolved with sublingual nitro. No EKG changes. Normal troponin. At this time, continue medical management of coronary artery disease and cardiac risk factors. No repeat cardiac intervention is needed. TRANSINT:[id number] Voice Confirmation ID: [id number] DOCUMENT ID: [id number] RENZO JOHNSTON MD CC: [id number] DICTATION DATE: 06/05/17 122 COLLECTION MANAGER: 06/05/17 1645 DEP 06/05/17 [place] [address] [place] [address]
[~2017-06-05 10:34] MED LIST changes: +AMBIEN10 MG PO; +CO Q-10100 MG PO; +PRAVACHOL40 MG PO
[2017-06-05 10:52] LABS: BASOPHILS 0.4 % (0-2); EOSINOPHILS 3.6 % (0-7); HEMATOCRIT 41.5 % (42.0-54.0); HEMOGLOBIN 13.9 g/dL (13.5-17.5); IMMATURE GRANULOCYTES 0.1 % (0-5); LYMPHOCYTES 25.7 % (15-50); MCHC 33.5 g/dL (31.0-37.0); MCV 89.4 fL (80.0-100.0); MEAN PLATELET VOLUME 9.2 fL (7.4-10.4); MONOCYTES 9.6 % (2-11); NEUTROPHILS 60.6 % (40-80); PLATELET COUNT 229 10x3/uL (130-400); RBC 4.64 10x6/uL (4.20-6.10); RDW 14.2 % (11.5-14.5); WBC 8.1 10x3/uL (4.8-10.8)
[2017-06-05 11:07] LABS: ALBUMIN 3.9 g/dL (3.4-5.0); ALKALINE PHOSPHATASE 61 U/L (46-116); ALT (SGPT) 27 U/L (10-68); BILIRUBIN - TOTAL 0.43 mg/dL (0.2-1.3); CALC OSMOLALITY 288 mosm/kg (275-300); CALCIUM 9.1 mg/dL (8.5-10.1); CARBON DIOXIDE 24.6 mmol/L (21.0-32.0); CHLORIDE - SERUM 104 mmol/L (98-107); CREATININE - SERUM 1.6 mg/dL (0.6-1.3); POTASSIUM - SERUM 4.1 mmol/L (3.5-5.1); PROTEIN - SERUM 7.2 g/dL (6.4-8.2); SODIUM 140 mmol/L (136-145); UREA NITROGEN 29 mg/dL (7-18); eGFR NON AFRICAN AMERICAN 46 mL/min (90-120)
[2017-06-05 11:10] LABS: GLUCOSE 163 mg/dL (74-106)
[2017-06-05 11:21] LABS: CHOL - HDL RATIO 3.6 ratio (2.3-4.9); CHOLESTEROL, TOTAL 161 mg/dL (0-200); CKMB 2.6 U/L (0.0-3.6); CREATINE KINASE 94 UL (21-232); HDL CHOLESTEROL 45 mg/dL (32-96); LDL CHOLESTEROL 98 mg/dL (0-100); LDL-HDL RATIO 2.2 ratio (1.5-3.5); TRIGLYCERIDE 90 mg/dL (30-200)
[2017-06-05 11:22] LABS: TROPONIN-I < 0.017 ng/mL (0.000-0.060)
== END 2017-06-05 12:56 | disposition home or self-care (01) ==
LOC: D.ER 10:34
PROVIDERS: Emergency Medicine
DX: I20.8 Other forms of angina pectoris (principal); I25.10 Atherosclerotic heart disease of native coronary artery without angina pectoris; I45.10 Unspecified right bundle-branch block

== ENCOUNTER 2017-09-15 11:30 | Day surgery (SDC) | payer MEDICARE, MEDICAID ==
[~2017-09-15] VITALS: Ht 177.8 cm; Wt 87.3 kg
--- NOTE | ~2017-09-15 | OP ---
PATIENT NAME: AMRIT MEJIA MEDICAL RECORD: [id number] :46 LOCATION:[facility] ADMISSION DATE: SURGEON: NOHEMY MURRAY MD DATE OF OPERATION: 09/15/2017 PROCEDURE: EGD with biopsy and esophageal balloon dilatation. REFERRING PHYSICIAN: Rafael Dempsey MD. INDICATIONS: Mr. Mejia is a very pleasant 67-year-old gentleman with a history of dysphagia, heartburn, intermittent nausea and vomiting has been present for several years. He has been taking omeprazole 40 mg daily, he is unsure if this has helped. He presents for outpatient EGD. PREMEDICATIONS: Total IV anesthesia (coronary artery disease, ASA 3) propofol 110 mg. INSTRUMENT: Olympus video gastroscope and esophageal balloon dilator 57-Ivorian. PROCEDURE AND FINDINGS: After receiving informed consent, Mr. Mejia's posterior pharynx was anesthetized with Cetacaine spray, placed in left lateral decubitus position sedated as per anesthesia. After achieving adequate sedation, gastroscope was introduced per orally and advanced to the duodenum without difficulty. The esophageal mucosa was without erythema or ulcers. At the GE junction was a thick nonobstructive Schatzki's ring, a small hiatal hernia was noted. There was bilious fluid backwash into the stomach. There is mild prepyloric and antral erythema and antral biopsies were obtained to rule out Helicobacter pylori. No lesions were seen in the body, cardia, fundus, incisura, or antrum. Pylorus was patent and competent. Within the duodenal bulb was geographic polypoid, sessile polypoid mucosa which was biopsied. A second portion of duodenal mucosa appeared normal. The gastroscope was then withdrawn to the stomach. Esophageal balloon dilator was then introduced through the gastroscope and the balloon was positioned midway across the distal esophagus insufflated to a 57-Ivorian size, held in place on the appropriate PSI for 60 seconds, then deflated with good results. The balloon was withdrawn, then biopsies were taken from the distal and mid esophagus to rule out eosinophilic esophagitis and reflux changes. Mr. Mejia tolerated the procedure well, no immediate complications. ASSESSMENT: 1. Thick nonobstructive Schatzki's ring at the GE junction, status post esophageal balloon dilatation to a 57-Ivorian. 2. Small hiatal hernia. 3. Gastritis. 4. 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 RECOMMENDATIONS: 1. Follow up histopathology. 2. Resume Plavix and other home medications and other home medications today. 3. Continue omeprazole 40 mg daily. 4. Reflux precautions. 5. Soft diet today. TRANSINT:[id number] Voice Confirmation ID: [id number] DOCUMENT ID: [id number] OPERATIVE REPORT [id number] AMRIT MEJIA TERRI MD at 1019 CC: RAFAEL DEMPSEY [id number] DICTATION DATE: 09/15/17 1510 ROD MACHINE OPERATOR: 09/15/17 1542 [facility] 09/15/17 [facility] [address] [place] [address]
[2017-09-15 12:30] LABS: BASOPHILS 0.2 % (0-2); EOSINOPHILS 0.6 % (0-7); HEMATOCRIT 41.6 % (42.0-54.0); HEMOGLOBIN 14.4 g/dL (13.5-17.5); IMMATURE GRANULOCYTES 0.3 % (0-5); LYMPHOCYTES 9.8 % (15-50); MCH 30.1 pg (26.0-34.0); MCHC 34.6 g/dL (31.0-37.0); MCV 86.8 fL (80.0-100.0); MEAN PLATELET VOLUME 9.1 fL (7.4-10.4); MONOCYTES 4.9 % (2-11); NEUTROPHILS 84.2 % (40-80); PLATELET COUNT 209 10x3/uL (130-400); RBC 4.79 10x6/uL (4.20-6.10)
[2017-09-15 12:42] VITALS: BP 152/85; Ht 177.8 cm; Wt 87.3 kg
[2017-09-15 12:42] LABS: ANION GAP 13.8 mmol/L (8-16); CALCIUM 9.7 mg/dL (8.5-10.1); CARBON DIOXIDE 25.3 mmol/L (21.0-32.0); CREATININE - SERUM 1.3 mg/dL (0.6-1.3); POTASSIUM - SERUM 4.1 mmol/L (3.5-5.1)
== END 2017-09-15 15:45 | disposition home or self-care (01) ==
LOC: D.OPS 11:30
PROVIDERS: Anesthesiology
DX: K22.2 Esophageal obstruction (principal); K44.9 Diaphragmatic hernia without obstruction or gangrene; K29.70 Gastritis, unspecified, without bleeding; K29.80 Duodenitis without bleeding; D72.820 Lymphocytosis (symptomatic); I25.10 Atherosclerotic heart disease of native coronary artery without angina pectoris; Z01.812 Encounter for preprocedural laboratory examination

== ENCOUNTER 2017-09-23 09:24 | Outpatient (CLI) | payer MEDICARE, MEDICAID ==
[~2017-09-23] VITALS: Ht 177.8 cm; Wt 87.3 kg
--- NOTE | ~2017-09-23 | OP ---
PATIENT NAME: AMRIT GABRIEL MEDICAL RECORD: [id number] :46 LOCATION:[facility] ADMISSION DATE: SURGEON: RENZO JOHNSTON MD DATE OF OPERATION: 09/23/2017 PROCEDURES: 1. PTCA stent RCA. 2. Left heart catheterization. 3. Selective coronary angiography. 4. Left ventriculogram. INDICATION: Angina and coronary artery disease. PROCEDURE IN DETAIL: After informed consent was obtained, a detailed description of risks, benefits as well as alternative therapies, the patient elected to proceed with angiogram and angioplasty. The right femoral area was prepped and draped in normal sterile fashion. Right femoral artery was cannulated via modified Seldinger technique with placement of 6-Hong Konger sheath. All catheters exchanged through this sheath. FINDINGS: Left ventriculogram was performed in standard 30-degree BULL view reveals preserved wall motion, ejection fraction of 50%. SELECTIVE CORONARY ANGIOGRAPHY: 1. Left main has no significant angiographic disease. 2. Left anterior descending has moderate irregularities. Previously placed stents in the LAD are patent, diagonal has moderate irregularities, previously placed stents are widely patent. 3. The left circumflex has previously placed stents. Circumflex is closed in the mid vessel. The distal circumflex fills via very good right to left collaterals. 4. The right coronary has previously placed stent in the proximal vessel. There is 80% in-stent restenosis and there is a new 80% stenosis in the mid vessel and nonstented area. PTCA STENT OF THE RCA: The stent used was a 3.0 x 8 mm Amol. High pressure balloon dilatation was made with a 3.5 Euphora high pressure balloon in the proximal aspect. Result was 0% residual. IMPRESSION: Successful percutaneous transluminal angioplasty stent of the right coronary artery, going from 80% initial stenosis times 2 to 0% residual stenosis. TRANSINT:[id number] Voice Confirmation ID: [id number] DOCUMENT ID: [id number] RENZO JOHNSTON MD at 1403 CC: [id number] DICTATION DATE: 09/23/17 1540 LOG CHAIN WORKER: 09/23/17 1600 DEP CLI 09/23/17 [place] [address]
--- NOTE | ~2017-09-23 | HEMODYNAMI ---
PATIENT:AMRIT GABRIEL MEDICAL RECORD: [id number] : 46 LOCATION:[facility] ADMISSION DATE: 09/23/17 Generatedon:09/23/201715:45 Patient name: AMRIT GABRIEL Patient #: [id number] : 1950 Date of study: 09/23/2017 Page: Of Hemodynamic Procedure Report Patient Data Patient Demographics Procedure consent was obtained First Name: AMRIT Gender: Male Last Name: HARVEY : 1950 [facility] Initial: PERFECTO Age: 67 year(s) Patient #: [id number] Race: SSN: [id number] Additional ID: [id number] Contact details Address: [address] [place] [address] State: [place] City: [facility] Zip code: [address] Past Medical History Allergies: No known allergies Admission Admission Data Admission Date: 09/23/2017 Admission Time: 9:24 Lab Results Lab Result Date: 09/23/2017 Lab Result Time: 0:00 Biochemistry Name Units Result Min Max BUN mg/dl 27 --(----)-* 7 18 Creatinine mg/dl 1.3 --(---*)-- 0.6 1.3 CBC Name Units Result Min Max Hemoglobin g/dl 14.6 --(-*--)-- 13.5 17.5 Procedure Procedure Types Cath Procedure Diagnostic Procedure [facility] w/Coronaries PCI Procedure Coronary Stent Coronary Stent Initial Procedure Description Procedure Date Procedure Date: 09/23/2017 Procedure Start Time: 15:24 Procedure End Time: 15:43 Procedure Staff Name Function Merrick Mccoy MD Performing Physician Cyril Salgado RT Monitor Hiren Gaitan RN Nurse Hailey Barker RT Scrub Procedure Data Cath Procedure Fluoroscopy Diagnostic fluoroscopy Total fluoroscopy Time: 2.9 time: 2.9 min min Diagnostic fluoroscopy Total fluoroscopy dose: dose: 440.19 mGy 440.19 mGy Contrast Material Contrast Material Type Amount (ml) Isovue 300 102 Entry Location Entry Primary Successful Side Size Upsize Upsize Entry Closure Succes sful Closure Location (Fr) 1 (Fr) 2 (Fr) Remarks Device Remarks Femoral Right 5 Fr 6 Fr Exoseal artery Short Estimated blood loss: 20 ml Diagnostic catheters Device Type Used For End Catheter Placement MULTIPACK Pigtail 5 Fr Procedure catheter MULTIPACK JL 4.0 5Fr Procedure catheter MULTIPACK 3DRC 5Fr Procedure catheter Procedure Medications Medication Administration Route Dosage Oxygen etCO2 Nasal cannula 2 l/min Heparin Flush Bag added to field 2 bags (1000units/500ml NS) 0.9% NaCl I.V. 100 ml/hr Fentanyl I.V. 50 mcg Fentanyl I.V. 50 mcg Fentanyl I.V. 50 mcg Fentanyl I.V. 50 mcg Heparin Bolus I.V. 4000 units Fentanyl I.V. 50 mcg Fentanyl I.V. 50 mcg Plavix P.O. 75 mg Hemodynamics Rest HGB: 14.6 (g/dl) Heart Rate: 95 (bpm) Pressure Samples Time Site Value (mmHg) Purpose Heart Use Rate(bpm) 15:25 LV 44/-3,-14 Snapshot 95 Snapshots Pre Cath Intra NCS Post Cath Vital Signs Time Heart Resp SPO2 etCO2 NIBP (mmHg) Rhythm Pain Sedation Rate (ipm) (%) (mmHg) Status Level (bpm) 14:25:16 65 16 98 0 185/107(154) NSR 0 (11) 10(A) , No pain 14:29:52 75 17 97 0 184/108(149) NSR 0 (11) 10(A) , No pain 14:34:29 72 16 97 0 177/98(151) NSR 0 (11) 10(A) , No pain 14:39:03 73 17 97 0 181/100(148) NSR 0 (11) 10(A) , No pain 14:43:40 72 16 97 0 176/101(149) NSR 0 (11) 10(A) , No pain 14:48:10 75 16 97 0 176/100(143) NSR 0 (11) 10(A) , No pain 14:52:36 71 17 97 0 177/100(150) NSR 0 (11) 10(A) , No pain 14:56:58 76 17 96 0 179/97(146) NSR 0 (11) 10(A) , No pain 15:01:21 78 16 96 0 181/104(148) NSR 0 (11) 10(A) , No pain 15:05:39 73 16 93 0 170/96(142) NSR 0 (11) 10(A) , No pain 15:09:55 75 16 93 0 164/92(136) NSR 0 (11) 10(A) , No pain 15:14:09 78 16 92 0 171/98(139) NSR 0 (11) 10(A) , No pain 15:18:29 79 16 92 0 162/77(128) NSR 0 (11) 10(A) , No pain 15:22:43 76 16 94 0 168/94(135) NSR 0 (11) 10(A) , No pain 15:26:59 84 16 96 0 161/92(133) NSR 0 (11) 9(A) , No pain 15:31:13 87 17 95 0 158/92(129) NSR 0 (11) 9(A) , No pain 15:35:23 93 17 93 0 153/97(125) NSR 0 (11) 9(A) , No pain 15:39:34 84 17 95 0 157/91(129) NSR 0 (11) 9(A) , No pain 15:43:46 82 7 94 0 161/94(133) NSR 0 (11) 9(A) , No pain Medications Time Medication Route Dose Verified Delivered Reason Notes Effectiveness by by 15:10:29 Oxygen etCO2 2 Merrick Maradiaga Per physician Nasal l/min Darius Gaitan RN cannula 15:10:38 Heparin Flush added 2 Merrick Maradiaga used for Bag to bags Darius Gaitan RN procedure (1000units/500ml field NS) 15:10:49 0.9% NaCl I.V. 100 Merrick Maradiaga Per physician ml/hr Darius Gaitan RN 15:11:10 Plavix P.O. 75 mg Merrcik Maradiaga for Darius Gaitan RN antiplatelet therapy 15:21:26 Fentanyl I.V. 50 Merrick Maradiaga for sedation mcg Darius Gaitan RN 15:23:31 Fentanyl I.V. 50 Merrick Maradiaga for sedation mcg Darius Gaitan RN 15:25:38 Fentanyl I.V. 50 Merrick Maradiaga for sedation mcg Darius Gaitan RN 15:28:44 Fentanyl I.V. 50 Merrick Maradiaga for sedation mcg Darius Gaitan RN 15:31:14 Fentanyl I.V. 50 Merrick Maradiaga for sedation mcg Darius Gaitan RN 15:31:24 Heparin Bolus I.V. 4000 Merrick Maradiaga for units Darius Gaitan RN anticoagulation 15:33:01 Fentanyl I.V. 50 Merrick Maradiaga for sedation [facility] Darius Gaitan cage/vault supervisor Log Time Note 14:00:13 Cyril Salgado RT(R) (CV) sent for patient. Start room use. 14:15:22 Time tracking: Regular hours (M-F 7:00 - 5:00) 14:15:25 Plan of Care:Hemodynamics will remain stable., Cardiac rhythm will remain stable., Comfort level will be maintained., Respiratory function will remain adequate., Patient/ family verbilizes understanding of procedure., Procedure tolerated without complication., Recovers from procedure without complications.. 14:15:29 Patient received from Pre/Post Procedure Room to [facility] 3 Alert and oriented. Tansferred to table in Supine position. 14:15:30 Warm blankets applied, and sandor hugger turned on for patient comfort. 14:15:30 Correct patient and procedure confirmed by team. 14:15:31 Signed procedure consent form obtained from patient. 14:15:32 ECG and BP/O2 sat monitors applied to patient. 14:15:33 Full Disclosure recording started 14:23:55 Vital chart was started 14:23:58 Rhythm: sinus rhythm 14:27:18 H&P Date Dictated: 09/20/2017 Within 30 days and on chart., H&P Addendum completed by physician on day of procedure. (MUST COMPLETE FOR ALL OUTPATIENTS). 14:27:20 Pre-procedure instructions explained to patient. 14:27:21 Pre-op teaching completed and patient verbalized understanding. 14:27:23 Family unavailable. 14:27:28 Patient NPO since Midnight. 14:27:38 Patient allergic to No known allergies 14:27:42 Is the patient allergic to Iodine/contrast media? No. 14:27:44 Is patient on blood thinner?Yes 14:27:49 ACC The patient was administered the following blood thiners within the last 24 hours: ACCPlavix 14:27:59 Patient diabetic? Yes. 14:28:02 If diabetic: On Metformin? Yes 14:28:19 If on Metformin: Last Dose? 09/20/2017 14:28:22 ----Pre-sedation anethsthesia assessment.---- 14:28:25 Previous problem with sedation/anesthesia? No ? 14:28:27 Snore? No 14:28:30 Sleep apnea? No 14:28:38 Deviated septum? No 14:28:39 Opens mouth fully? Yes 14:28:40 Sticks out tongue? Yes 14:28:50 Airway obstruction? No ? 14:28:54 Dentures? No ? 14:31:40 Pre procedure: right dorsailis pedis pulse 2+ Normal; easily identifiable; not easily obliterated 14:31:46 Patient pain scale 0/10 ?. 14:32:00 IV patent on arrival in left wrist with 0.9% NaCl at O. 14:35:30 Lab Result : Creatinine 1.3 mg/dl 14:35:30 Lab Result : BUN 27 mg/dl 14:35:30 Lab Result : Hemoglobin 14.6 g/dl 14:35:34 Lab results completed and on chart. 14:35:39 Right groin area was prepped with chlora-prep and draped in sterile fashion 14:35:43 Alarms reviewed by R. N. 14:35:44 Sharps counted by scrub and verified by R.N. 14:38:02 Zero performed for pressure channel P1 14:41:52 Use device set Femoral Dx 14:41:55 ACIST Syringe (85965) opened to sterile field. 14:41:55 Bag Decanter () opened to sterile field. 14:41:56 Medline Cath Pack ([id number]) opened to sterile field. 14:41:57 DIAGNOSTIC WIRE .035 260cm J wire (126047) opened to sterile field. 14:41:59 ACIST Hand Control (44164) opened to sterile field. 14:42:00 ACIST Manifold (37152) opened to sterile field. 14:42:01 DIAGNOSTIC Multipack 5Fr catheter set (YP9791) opened to sterile field. 14:42:01 Tegaderm 4 x 4 (1626W) opened to sterile field. 14:42:03 SHEATH Prelude 5Fr 0.035 ([id number]-6A-91-035) opened to sterile field. 14:56:11 DR. MCCOY TALKING WITH FAMILY 15::29 Oxygen 2 l/min etCO2 Nasal cannula was administered by Hiren Gaitan RN; Per physician; 15::38 Heparin Flush Bag (1000units/500ml NS) 2 bags added to field was administered by Hiren Gaitan RN; used for procedure; 15::49 0.9% NaCl 100 ml/hr I.V. was administered by Hiren Gaitan RN; Per physician; 15::10 Plavix 75 mg P.O. was administered by Hiren Gaitan RN; for antiplatelet therapy; 15:18: Physician arrived 15:: --------ALL STOP TIME OUT------ 15:18:11 Final Timeout: patient, procedure, and site verified with staff and physician. All members of the team are in agreement. 15:18:31 Right groin site verified by team. 15:18:46 Physical assessment completed. ASA score P 2 - A patient with mild systemic disease as per Merrick Mccoy MD. 15:18:53 Sedation plan: IV Moderate Sedation Medication:Fentanyl 15::26 Fentanyl 50 mcg I.V. was administered by Hiren Gaitan RN; for sedation; 15:23:19 Procedure started. 15:23:31 Fentanyl 50 mcg I.V. was administered by Hiren Gaitan RN; for sedation; 15:24:11 Local anesthetic to right femoral artery with Lidocaine 2% by Merrick Mccoy MD.INITIAL ACCESS ONLY 15:24:36 A 5 Fr sheath was inserted into the Right Femoral artery 15:24:51 A MULTIPACK Pigtail 5 Fr catheter was advanced over the wire and used for Procedure. 15:25:25 LV hemodynamics recorded. 15:25:27 LV gram done using BULL 15:25:33 EF : 50 % 15::38 Fentanyl 50 mcg I.V. was administered by Hiren Gaitan RN; for sedation; 15:25:45 Catheter removed. 15:25:59 A MULTIPACK JL 4.0 5Fr catheter was advanced over the wire and used for Procedure. 15:26:29 LCA angiography performed. 15::43 Catheter removed. 15:27:49 A MULTIPACK 3DRC 5Fr catheter was advanced over the wire and used for Procedure. 15:27:57 RCA angiography performed. 15:28:44 Fentanyl 50 mcg I.V. was administered by Hiren Gaitan RN; for sedation; 15:29:11 Catheter removed. 15:29:19 Proceeding to intervention. 15:29:58 SHEATH 6Fr Prelude ([id number]) opened to sterile field. 15:30:00 CHOICE PT Extra Support 182cm wire ([id number]) opened to sterile field. 15:30:01 INFLATOR Merit BasixCompak (NV5759) opened to sterile field. 15:30:26 GUIDE 6FR 3DRC catheter ([id number]) opened to sterile field. 15:30:37 Sheath upsized to a 6 Fr Short. 15:30:49 6 Fr 3DRC guide catheter was inserted over the wire 15:31:14 Fentanyl 50 mcg I.V. was administered by Hiren Gaitan RN; for sedation; 15:31:24 Heparin Bolus 4000 units I.V. was administered by Hiren Gaitan RN; for anticoagulation; 15:31:49 CHOICE wire advanced. 15:32:37 Inflate balloon Inflation number: 1 A NC EUPHORA 3.5 x 12 balloon ([id number]) was prepped and advanced across the Prox RCA, then inflated to 21 KRISTA for 0:10 (min:sec). 15:33:01 Fentanyl 50 mcg I.V. was administered by Hiren Gaitan RN; for sedation; 15:33:51 Inflation number: 2 The NC EUPHORA 3.5 x 12 balloon ([id number]) was reinflated across the Prox RCA, to 21 KRISTA for 0:10 (min:sec). 15:33:53 Balloon removed over the wire. 15:35:06 Place stent Inflation Number: 1 A GINETTE RX 3.0 x 08 stent ([id number]) was prepped and advanced across the Mid RCA. The stent was deployed at 15 KRISTA for 0:10 (min:sec). 15:38:20 Stent catheter was removed intact over wire. 15:38:21 Wire removed. 15:38:21 Guide catheter removed. 15:38:33 EXOSEAL 6Fr (EX600) opened to sterile field. 15:38:51 Sheath removed intact; hemostasis achieved with Exoseal to the Right Femoral artery. 15:39:09 Procedure ended.(Physican Out) 15:39:40 Fluoroscopy time 02.90 minutes. 15:39:48 Fluoroscopy dose: 440.19 mGy 15:39:48 Flurop Dose total: 440.19 15:40:16 Contrast amount:Isovue 300 102ml. 15:40:17 Sharps counted by scrub and verified by R.N. 15:40:37 Procedure type changed to Cath procedure, Diagnostic procedure, LHC, LHC w/Coronaries, PCI procedure, Coronary Stent, Coronary Stent Initial 15:41:36 Insertion/operative site no bleeding no hematoma. 15:41:41 Post-op/insertion site Right Femoral artery dressed using a 4 x 4 and Tegaderm. 15:41:45 Post right femoral artery:stable 15:42:05 Post Procedure Pulses reassessed and unchanged 15:42:11 Post-procedure physical assessment completed. ASA score P 2 - A patient with mild systemic disease as per Merrick Mccoy MD. 15:42:16 Post procedure rhythm: unchanged. 15:42:20 Estimated blood loss: 20 ml 15:42:22 Post procedure instruction explained to patient.Patient verbalizes understanding. 15:42:23 Patient needs reinforcement of post procedure teaching. 15:43:16 Procedure and supply charges have been captured, reviewed, submitted and are correct. 15:43:23 Vital chart was stopped 15:43:24 See physician's report for complete and final results. 15:43:26 Report given to PCU. 15:43:31 Patient transfered to PCU with Stretcher. 15:43:49 Procedure ended. 15:43:49 Full Disclosure recording stopped 15:43:53 End room use (Document Last) Intervention Summary Intervention Notes Time ActionType Lesion and Equipment Used Action# Pressure Duration Attributes 15:32:37 Inflate Prox RCA NC EUPHORA 3.5 1 21 00:10 balloon x 12 balloon ([id number]) 15:33:51 Reinflate Prox RCA NC EUPHORA 3.5 2 21 00:10 balloon x 12 balloon ([id number]) 15:35:06 Place stent Mid RCA GINETTE RX 3.0 x 1 15 00:10 08 stent ([id number]) Device Usage Item Name Manufacture Quantity Catalog Number Hospital Part Current Minimal Lot# / Charge Number Stock Stock Serial# Code ACIST Syringe Acist 1 51028 642251 609074 217673 20 (94038) Medical Systems Inc Bag Decanter Microtek 1 904453 85739 301776 5 () Medical Inc. Medline Cath Cardinal 1 [id number] 396092 09212 075358 5 [employer] ([id number]) DIAGNOSTIC WIRE St Yon 1 668520 923786 262397 313960 30 .035 260cm J wire (355587) ACIST Hand Acist 1 28639 345805 466531 339673 5 Control (50894) Medical Systems Inc ACIST Manifold Acist 1 44990 617422 692822 227310 5 (98071) Medical Systems Revver DIAGNOSTIC Cardinal 1 [id number] 965382 88451 671616 30 Multipack 5Fr Health catheter set (QF4293) Tegaderm 4 x 4 3M 1 1626W 317328 665321 643602 5 (1626W) SHEATH Prelude Merit 1 [id number]-[id number]-[id number] 692758 382078 129598 5 5Fr 0.035 Medical ([id number]-7O-64-035) MULTIPACK Cardinal 1 174896 5 Pigtail 5 Fr Health catheter MULTIPACK JL Cardinal 1 309297 5 4.0 5Fr Health catheter MULTIPACK 3DRC Cardinal 1 463533 5 5Fr catheter Health SHEATH 6Fr Merit 1 [id number] 214676 286081 739766 5 Prelude Medical ([id number]) CHOICE PT Extra [place] 1 [id number] 085625 659693 811320 5 Support 182cm Scientific wire ([id number]) INFLATOR Merit Merit 1 XF0757 292036 990436 801324 15 swiftQueue Medical ([id number]) GUIDE 6FR 3DRC Medtronic 1 [id number] 877443 159940 187352 1 catheter ([id number]) NC EUPHORA 3.5 Medtronic 1 [id number] 842640 265873 133065 1 x 12 balloon ([id number]) GINETTE RX 3.0 x Medtronic 1 [id number] 007140 4977743 700904 5 [id number] 08 stent ([id number]) EXOSEAL 6Fr Cardinal 1 EX600 493128 028054 048652 10 (EX600) Health Signature Audit Lee Stage Time Signature Unsigned Intra-Procedure 09/23/2017 Cyril Salgado 3:45:09 PM RT(R) (CV) Signatures Monitor : Cyril Salgado RT Signature : Date : Time : [address] [address]
[2017-09-23 10:46] LABS: BASOPHILS 0.5 % (0-2); EOSINOPHILS 1.8 % (0-7); HEMATOCRIT 42.7 % (42.0-54.0); HEMOGLOBIN 14.6 g/dL (13.5-17.5); IMMATURE GRANULOCYTES 0.1 % (0-5); LYMPHOCYTES 21.9 % (15-50); MCH 29.9 pg (26.0-34.0); MCHC 34.2 g/dL (31.0-37.0); MCV 87.5 fL (80.0-100.0); MEAN PLATELET VOLUME 9.1 fL (7.4-10.4); MONOCYTES 9.6 % (2-11); NEUTROPHILS 66.1 % (40-80); PLATELET COUNT 231 10x3/uL (130-400); RBC 4.88 10x6/uL (4.20-6.10); RDW 13.8 % (11.5-14.5); WBC 8.4 10x3/uL (4.8-10.8)
[2017-09-23 10:56] VITALS: BP 160/88; Ht 177.8 cm; Wt 87.3 kg
[2017-09-23 11:22] LABS: ANION GAP 15.3 mmol/L (8-16); CALCIUM 9.6 mg/dL (8.5-10.1); CREATININE - SERUM 1.3 mg/dL (0.6-1.3); POTASSIUM - SERUM 4.3 mmol/L (3.5-5.1)
== END 2017-09-23 19:45 | disposition home or self-care (01) ==
LOC: D.CATH 09:24 → D.LAB 10:00 → D.CATH 11:30
PROVIDERS: Internal Medicine Interventional Cardiology
DX: I25.119 Atherosclerotic heart disease of native coronary artery with unspecified angina pectoris (principal); T82.855A Stenosis of coronary artery stent, initial encounter; Z01.812 Encounter for preprocedural laboratory examination
CPT/HCPCS: 93458; C9600

== ENCOUNTER 2018-05-21 15:57 | Emergency (ER) | payer MEDICARE, MEDICAID ==
[~2018-05-21] VITALS: Ht 177.8 cm; Wt 90.0 kg
[2018-05-21 16:01] VITALS: Ht 177.8 cm; Wt 90.0 kg
[2018-05-21] MEDS ORDERED: GLIMEPIRIDE1 MG PO (16:02)
[2018-05-21 16:28] LABS: BASOPHILS 0.1 % (0-2); EOSINOPHILS 0.2 % (0-7); HEMOGLOBIN 14.4 g/dL (13.5-17.5); IMMATURE GRANULOCYTES 0.2 % (0-5); LYMPHOCYTES 5.3 % (15-50); MCH 30.3 pg (26.0-34.0); MCHC 34.3 g/dL (31.0-37.0); MCV 88.4 fL (80.0-100.0); MEAN PLATELET VOLUME 9.4 fL (7.4-10.4); NEUTROPHILS 89.2 % (40-80); PLATELET COUNT 188 10x3/uL (130-400); RBC 4.75 10x6/uL (4.20-6.10); RDW 14.3 % (11.5-14.5); WBC 11.3 10x3/uL (4.8-10.8)
[2018-05-21 16:31] LABS: APPEARANCE CLEAR (CLEAR); BILIRUBIN NEGATIVE (NEGATIVE); COLOR YELLOW (YELLOW); GLUCOSE NEGATIVE (NEGATIVE); KETONE NEGATIVE (NEGATIVE); NITRITE NEGATIVE (NEGATIVE); PROTEIN NEGATIVE (NEGATIVE); SPECIFIC GRAVITY 1.015 (1.005-1.020); UROBILINOGEN NORMAL (NORMAL)
[2018-05-21 16:45] LABS: ALBUMIN 3.7 g/dL (3.4-5.0); ALKALINE PHOSPHATASE 65 U/L (46-116); ALT (SGPT) 36 U/L (10-68); BILIRUBIN - TOTAL 0.57 mg/dL (0.2-1.3); CALC OSMOLALITY 285 mosm/kg (275-300); CALCIUM 8.7 mg/dL (8.5-10.1); CARBON DIOXIDE 23.9 mmol/L (21.0-32.0); CHLORIDE - SERUM 101 mmol/L (98-107); CREATININE - SERUM 1.5 mg/dL (0.6-1.3); GLUCOSE 153 mg/dL (74-106); POTASSIUM - SERUM 4.1 mmol/L (3.5-5.1); PROTEIN - SERUM 7.4 g/dL (6.4-8.2); SODIUM 137 mmol/L (136-145); UREA NITROGEN 37 mg/dL (7-18); eGFR NON AFRICAN AMERICAN 49 mL/min (90-120)
[2018-05-21 16:56] LABS: CKMB 3.8 U/L (0.0-3.6); CREATINE KINASE 123 UL (21-232)
[2018-05-21 16:57] LABS: TROPONIN-I < 0.017 ng/mL (0.000-0.060)
[2018-05-21] MEDS ORDERED: GABAPENTIN100 MG PO (19:40)
[2018-05-21 20:11] VITALS: BP 90/69
== END 2018-05-21 20:12 | disposition home or self-care (01) ==
LOC: D.ER 15:57
PROVIDERS: Family Medicine
DX: E10.40 Type 1 diabetes mellitus with diabetic neuropathy, unspecified (principal); R19.7 Diarrhea, unspecified; R06.02 Shortness of breath